=== PATIENT | female | born 1930 | race Caucasian/White ===

== ENCOUNTER 2016-10-14 10:39 | Inpatient (IN) | payer MEDICARE ==
[2016-10-14] VITALS (8 sets, daily range): BP systolic 128–160; BP diastolic 60–95; PULSE 100–125; RESP 14–23; O2SAT 92–97
[~2016-10-14] VITALS: Ht 177.8 cm; Wt 71.6 kg
[~2016-10-14 10:39] MED LIST: CAR120CD PO; COU25 PO; COU5 PO; DIVA125C PO; KEPP250T PO; LACT1TAB10 PO; MEMA5TAB2 PO; NAPR220T2 PO; PEP20 PO; PRAV80TA PO
--- NOTE | 2016-10-14 11:01 | ED.REPORT ---
HPI-Abd Pain F 40 and Over Date of Service Oct 14, 2016 ED Provider: Dr. Cedillo 85 y/o female wit a hx of dementia, A-fib (on Coumadin), CVA, left sided hemiparesis and frequent UTIs presents to the ED via EMS complaining of abdominal pain, onset 3 days ago. Associate sx include nausea and vomiting. The pt was seen at urgent care for constipation yesterday but does not associate her current pain with constipation. Her last BM was yesterday. Nursing Notes Stated Complaint: ABDOMINAL PAIN Chief Complaint: Female Abdominal Pain Nursing Notes Reviewed: Yes Allergies: Coded Allergies: hydromorphone (Verified Adverse Reaction, Unknown, NAUSEA, 10/14/16) Scheduled Diltiazem (Diltiazem) 60 Mg Tablet 60 MG PO Q8H Levetiracetam (Levetiracetam) 500 Mg Tablet 500 MG PO BID Memantine HCl (Memantine HCl) 10 Mg Tablet 10 MG PO BID Warfarin Sodium (Coumadin) 5 Mg Tablet 5 MG PO Mon, Wed, Thu General Time Seen by MD: 11:01 Chief Complaint Abdominal pain Hx Obtained From: Patient Arrived By: Ambulance Sudden in Onset?: Yes Onset Occurred: 3 days ago Symptom Duration: Since onset Location: : Diffuse Quality: Painful Radiation: : Does not radiate Severity: Current: Moderate Severity: Maximum: Moderate Recent Healthcare: No recent doctor visit Similar Sx Previous: No Past Medical History Past Medical History - dementia - A-fib (on Coumadin) - CVA - left sided hemiparesis - frequent UTIs - HTN Past Surgical History none reported Smoking History Unknown if Ever Smoker Ambulatory Status Independent Review of Systems GI: Reports: Abdominal pain, Constipation, Nausea, Vomiting Complete sys rev & neg: except as marked. Physical Exam Vital Signs Vital Signs (First) Date Time Temp Pulse Resp B/P Pulse Ox O2 Delivery O2 Flow Rate FiO2 10/14/16 10:47 36.4 116 23 160/64 94 Room Air Initial VS: Reviewed Head / Eyes: Atraumatic, Normocephalic Neck: Supple, Non-tender, Full range of motion Extremities: Vascular intact, Neuro intact, No swelling, No tenderness Skin: Warm, Dry, No cyanosis Neurologic: Alert, Oriented, Nonfocal General/Constitutional: Awake, Alert, Cooperative Respiratory / Chest: Atraumatic, Breath sounds NL, Breath sounds = bilat, No respiratory distress, No rales, No rhonchi, No wheezing Cardiovascular: Regular rhythm, Heart sounds NL, No gallop, No murmurs, No rubs Heart Rate / Rhythm: Positive: Tachycardia Abdomen: Atraumatic, Soft, No guarding, No rebound Tenderness/Guarding/Rebound: Positive: Tender LLQ... (Moderate) Back: Atraumatic, Full range of motion Interpretation & Diagnostics Lab Results Interpretation Result Diagram: 10/14/16 1150 10/14/16 1150 Test 10/14/16 11:50 10/14/16 12:00 White Blood Count 28.2th/mm3 (3.8-10.1) Red Blood Count 4.86mil/mm3 (3.90-5.20) Hemoglobin 15.4g/dL (12.0-15.6) Hematocrit 44.6% (35.0-46.0) Mean Corpuscular Volume 91.8fL (81-100) Mean Corpuscular Hemoglobin 31.7pg (27.0-35.0) Mean Corpuscular Hemoglobin Concent 34.5% (32.0-37.0) Red Cell Distribution Width 13.6% (12.3-15.4) Platelet Count 237bil/L (150-400) Neutrophils (%) (Auto) 90.2% (40-74) Lymphocytes (%) (Auto) 2.8% (14-46) Monocytes (%) (Auto) 6.4% (4-12) Eosinophils (%) (Auto) 0% (0-5) Basophils (%) (Auto) 0.1% (0-3) Prothrombin Time 48.2sec (8.1-12.5) Prothromb Time International Ratio 4.37ratio Sodium Level 147mEq/L (134-144) Potassium Level 4.7mEq/L (3.5-5.2) Chloride Level 107mEq/L (97-108) Carbon Dioxide Level 25mmol/L (18-29) Blood Urea Nitrogen 38mg/dL (8-27) Creatinine 1.44mg/dL (0.57-1.00) Estimat Glomerular Filtration Rate 49mL/min (>59) Glucose Level 167mg/dL (60-99) Calcium Level 9.5mg/dL (8.5-10.1) Magnesium Level 2.3mg/dL (1.6-2.6) Total Bilirubin 0.8mg/dL (0.0-1.2) Aspartate Amino Transf (AST/SGOT) 46U/L (0-50) Alanine Aminotransferase (ALT/SGPT) 50U/L (0-32) Alkaline Phosphatase 142U/L (25-165) Total Protein 7.7g/dL (6.4-8.4) Albumin 4.0g/dL (3.4-5.0) Lipase 20U/L (13-60) Lactic Acid Level 1.8mmol/L (0.4-2.0) Hold Cervantes Top Tube Received (Received) X-Ray Chest Interpretation Chest Xray Interpretation: IMPRESSION: Trace blunting of the left costophrenic angle suggestive of effusion. Smaller underlying airspace disease such as pneumonia and/or atelectasis cannot be excluded. Dictated by: Siomara Castro M.D. on 10/14/2016 at 13:16 Approved by: Siomara Castro M.D. on 10/14/2016 at 13:17 View: Portable, 1 view Interpretation / Wet Read by: Interpret - Radiologist CT Abd / Pelvis Interpretation IMPRESSION: 1. Enlarged gallbladder with moderate surrounding edema is concerning for acute inflammation. An ultrasound would be helpful for better characterization, particularly given motion artifact through this region. These findings are suspicious for acute cholecystitis. 2. Minimal fluid within the left lower quadrant and pelvis probably is reactive to the probable inflammatory process within the right upper quadrant. However, superimposed subtle diverticulitis cannot be completely excluded. 3. Moderate residual stool within the colon. There is no bowel obstruction. 4. Probable chronic interstitial changes at the lung bases with bronchiectasis. 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 5. Nonobstructing left renal calculus. Soft tissue prominence of the left renal collecting system and upper ureter is similar to the previous exam and probably exaggerated by adjacent vascular structures. A ureteral lesion is felt to be unlikely. Dictated by: Guicho Wallis M.D. on 10/14/2016 at 12:11 Approved by: Guicho Wallis M.D. on 10/14/2016 at 12:21 Study type: Abdominal CT no contrast Interpretation / Wet Read by: Interpret - Radiologist Re-Eval/Medical Decision Med Decision/Clinical Course Sepsis due to cholecystitis. Patient will be admitted. Additionally she has a warfarin induced coagulopathy which we treated with IV vitamin K. Source of Hx: Old records Re-Evaluation/Progress : Time of Eval: 01:28 Re-Evaluation/Progress Note: Rechecked pt. Discussed lab results, imaging results, diagnosis and plan to admit after an ultrasound. She understands and agrees with the plan. All questions answered. Consultation #1: Referral / Consult Name: Yeison Pagan MD Consulted With: Surgeon Call Returned at: 13:34 Tape Sewing Machine Operator: Will see patient, Agrees with eval, Agrees with plan, Accepts admit Note: Recommends Vitamin K and admit. Consultation #2: Referral / Consult Name: Andrei Reeder MD Tape Sewing Machine Operator: Accepts admit Counseled Regarding: Diagnosis, Lab results, Need for admission Discharge & Departure Primary Impression: Sepsis Sepsis type: sepsis due to unspecified organism Qualified Code: A41.9 - Sepsis, unspecified organism Additional Impression: Cholecystitis Disposition: ADMITTED TO HOSPITAL Discharge Condition All VS Reviewed: Yes Scribe Attestation Portions of this note were transcribed by Rachel Geiger. I,, personally performed the history, physical exam and medical decision-making;I reviewed and confirmed the accuracy of the information in the transcribed note. Signed by Vinay Maier. 10/14/16 13:37 Grant Cedillo DO Oct 14, 2016 11:01 Rachel Geiger Oct 14, 2016 11:40 Rachel Geiger Oct 14, 2016 11:40
[2016-10-14] MEDS ORDERED: 0.9% Sodium Chloride 1,000 ML IV ONE ×2 (11:39→13:25)
[2016-10-14] MEDS ORDERED: Ondansetron 2 mg/mL 2 mL Inj IVPUSH PRN ×2 (11:40→15:25)
[2016-10-14 12:07] LABS: BASOPHILS % (AUTO) 0.1 % (0-3); EOSINOPHILS % (AUTO) 0 % (0-5); MONOCYTES % (AUTO) 6.4 % (4-12); Mean Corpuscular Hemoglobin 31.7 pg (27.0-35.0); Mean Corpuscular Volume 91.8 fL (81-100); NEUTROPHILS % (AUTO) 90.2 % (40-74); Platelet Count 237 bil/L (150-400)
[2016-10-14 12:31] LABS: Magnesium 2.3 mg/dL (1.6-2.6)
[2016-10-14 13:14] LABS: INR 4.37 ratio
--- NOTE | 2016-10-14 13:18 | DRSVH ---
PROCEDURE: X-RAY CHEST ONE VIEW, PORTABLE ([id number]) INDICATIONS: leukocytosis TECHNIQUE: One view of the chest was acquired. COMPARISON: [facility], CR, XR CHEST 1VW, 10/13/2016, 16:00. FINDINGS: Surgical changes and devices: None. Lungs and pleura: There is trace blunting of the left costophrenic angle. Mediastinum: Mediastinal contours appear normal. Heart size is normal. Bones and chest wall: No suspicious bony lesions. Overlying soft tissues appear unremarkable. IMPRESSION: Trace blunting of the left costophrenic angle suggestive of effusion. Smaller underlying airspace disease such as pneumonia and/or atelectasis cannot be excluded. Dictated by: Siomara Castro M.D. on 10/14/2016 at 13:16 Approved by: Siomara Castro M.D. on 10/14/2016 at 13:17
--- NOTE | 2016-10-14 13:23 | DRSVH ---
PROCEDURE: CT ABDOMEN AND PELVIS WITHOUT CONTRAST ([id number]) INDICATIONS: Left lower quadrant abdominal pain. TECHNIQUE: After the administration of oral contrast, 5 mm thick sections acquired from the diaphragms to the sy mphysis. 5 mm coronal and sagittal reformats were performed. For radiation dose reduction, the foll owing was used: automated exposure control, adjustment of mA and/or kV according to patient size. COMPARISON: [facility] , CT, CHEST W/O CONTRAST, 08/29/2009, 12:45. FINDINGS: Image quality: Suboptimal related to motion artifact within the upper abdomen. ABDOMEN: Lung bases: Scarring/atelectasis is noted within the bilateral lung bases (left more than right). Mi ld inferior bronchiectasis is present. There are calcified pleural plaques versus granulomas noted b ilaterally. The heart is prominent in size. There is no pericardial effusion. Coronary artery athe rosclerotic changes appear to be present. Solid organs: The gallbladder is prominently enlarged and demonstrates apparent wall thickening with moderate surrounding edema. Evaluation of this region is difficult related to upper abdominal respir atory motion artifact. The liver is not well evaluated. The spleen adrenals, and kidneys appear to be within normal limits. However, there is a nonobstructing left renal calculus. Mild prominence of the left renal collecting system is present, which in retrospect appears similar to the previous exa mination and may be exaggerated by overlying vascular structures. The pancreas also appears to be wit hin normal limits. There is mild enlargement of the left adrenal gland, similar to the previous exam . Peritoneum and bowel: The stomach is not well evaluated on this study, particularly within the region of the antrum. The duodenum is probably within normal limits. The small bowel loops are not signif icantly dilated. Moderate residual stool is seen within the colon. There is no complete bowel obstr uction proposed operative changes of the proximal colon are incidentally noted. Minimal edema/fluid is noted within the left lower quadrant mesentery. Small amount of free fluid is seen within the rig ht upper quadrant near the gallbladder fossa. There is no loculated fluid collection or free air. Nodes and vessels: No retroperitoneal or mesenteric adenopathy by size criteria. Aorta and inferior vena cava are normal in size. There is aortic atherosclerosis. Bones: At least moderate degenerative changes of the lumbar spine are present. No acute fractures or dislocations are identified. The bone mineralization is diffusely decreased. PELVIS: Genitourinary: Bladder wall thickness is normal. The uterus and ovaries do not appear to be enlarge d. Miscellaneous: No inguinal hernias or adenopathy. A small amount of free fluid is seen within the p owen. There are no loculated fluid collections. Bones: No suspicious bony lesions. No vertebral body compression fractures. IMPRESSION: 1. Enlarged gallbladder with moderate surrounding edema is concerning for acute inflammation. An ul trasound would be helpful for better characterization, particularly given motion artifact through thi s region. These findings are suspicious for acute cholecystitis. 2. Minimal fluid within the left lower quadrant and pelvis probably is reactive to the probable infl ammatory process within the right upper quadrant. However, superimposed subtle diverticulitis cannot be completely excluded. 3. Moderate residual stool within the colon. There is no bowel obstruction. 4. Probable chronic interstitial changes at the lung bases with bronchiectasis. Calcified pleural p laques are suggestive of prior asbestos exposure. 5. Nonobstructing left renal calculus. Soft tissue prominence of the left renal collecting system a nd upper ureter is similar to the previous exam and probably exaggerated by adjacent vascular structu res. A ureteral lesion is felt to be unlikely. Dictated by: Guicho Wallis M.D. on 10/14/2016 at 12:11 Approved by: Guicho Wallis M.D. on 10/14/2016 at 12:21
[2016-10-14] MEDS ORDERED: Piperacillin-Tazo 3.375 Gm Inj 3.375 GM in Dextrose 5% Minibag Plus 50 ML IV ONE (13:25)
[2016-10-14] MEDS ORDERED: Phytonadione (Adult) 10 MG in Dextrose 5%-Pha MIX 50 ML IV ONE (13:40)
[2016-10-14] MEDS ORDERED: LEVE500T3 PO (14:59)
[2016-10-14] MEDS ORDERED: DILT60TA PO (14:59)
[2016-10-14] MEDS ORDERED: MEMA10TA20 PO (14:59)
[2016-10-14] MEDS ORDERED: WARF5TAB PO (15:00)
[2016-10-14] MEDS ORDERED: Alum-Mag Hydrox-Simeth 30 mL Suspension PO PRN (15:25)
[2016-10-14] MEDS ORDERED: Polyethylene Glycol (PEG) 17 Gm Powder PO PRN (15:25)
--- NOTE | 2016-10-14 16:34 | DRSVH ---
PROCEDURE: US ABDOMEN ([id number]) INDICATIONS: RUQ abdominal pain TECHNIQUE: Real-time scanning was performed of the abdominal and retroperitoneal organs, with image documentatio n. COMPARISON: None. FINDINGS: Liver: Liver is normal in size at 12.8 cm and homogeneous in echotexture. Gallbladder: Small stones and sludge are present in the gallbladder. The largest node is 1 cm. There is wall thickening of 3.8 cm. This thought to be a small amount of fluid around the gallbladder. Biliary ducts: Intrahepatic bile ducts are non-dilated. The extrahepatic biliary tree is obscured b y bowel gas. Pancreas: Body of the pancreas is considered normal. Head and tail are obscured by bowel gas. Spleen: Spleen is spleen is relatively small at 3.5 cm. It is otherwise normal in appearance. Kidneys: Kidneys are normal in size and echotexture. Right kidney measures 10.2 cm long; left kidne y is not sufficiently well seen to measure.. Right renal cortex is slightly thinned at 9 mm in thickn ess. No hydronephrosis or nephrolithiasis on the right.. No solid masses on the right.. Aorta: The abdominal aorta is obscured in its proximal third. The middle and distal thirds are normal in size. Iliacs: Proximal common iliac arteries are normal in caliber at less than 2.5 cm. the right is 11 a nd the left 9 mm. IVC: Intrahepatic inferior vena cava is patent. Miscellaneous: No free abdominal fluid. IMPRESSION: Changes are present consistent with an acute cholecystitis. Left kidney and not sufficiently well seen to evaluate. Head and tail of the pancreas obscured by bow el gas. Dictated by: Justin Porras M.D. on 10/14/2016 at 16:28 Approved by: Justin Porras M.D. on 10/14/2016 at 16:32
[2016-10-14] MEDS: 0.9% Sodium Chloride 1,000 ML IV SCH (17:15)
--- NOTE | 2016-10-14 18:17 | CONS ---
[address] [address] CONSULTATION REPORT PATIENT: NGA MCKEE : 1930 MR#: [id number] ADMIT: 10/14/2016 JOB ID: [id number] DATE OF SERVICE: 10/14/2016 CHIEF COMPLAINT IDENTIFICATION: Dr. Cedillo in emergency department has asked me to consult on this woman who is being admitted to the Medicine service regarding her gallbladder. HISTORY OF PRESENT ILLNESS: An 85-year-old woman who presents with abdominal pain x3 days. I am unable to obtain any of the history from the patient and only some of the history from her . It sounds as if she has had abdominal pain for the last three days with symptoms including nausea and vomiting. She was seen at an urgent care yesterday, comes to our emergency department where she was noted to be tachycardic, have an elevated white count, and CT scan demonstrated possible cholecystitis. I can obtain no information as to whether she has a history of jaundice, acholic stools, or tea-colored urine. She has a history recorded in the chart of a previous CVA with persistent left-sided deficits, history of atrial fibrillation, on chronic Coumadin therapy, hypertension, hyperlipidemia, history of a seizure disorder, as well as a history of a right partial colectomy in 2007. No reported allergies. MEDICATIONS: Per med reconciliation list, these include warfarin, diltiazem, levetiracetam, and memantine. SOCIAL HISTORY: She lives with her in some sort of assisted living situation. PHYSICAL EXAMINATION: Vital signs recorded in the chart. Her pulse is between 104 and 116. Blood pressure is within normal limits. O2 saturation on 2 L nasal cannula is 92%, down from 96% on room air. She is in bed with her eyes closed, arousable, and able to say yes to questions but she does not engage in a meaningful conversation nor does she answer my questions. She has not been medicated for several hours. Her skin is not jaundiced. Her sclerae are anicteric. She has an irregular regular heartbeat. Lungs are clear. Her abdomen is fairly benign, without significant tenderness in the right upper quadrant. There are no groin hernias. Formal neurologic exam is not performed. 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 LABORATORY DATA: Her white count is 28,000. Her hematocrit is 44, compared to mid 30s on a previous CBC. Her chemistries are normal except for a sodium of 147, a BUN of 38, and a creatinine of 1.44. LFTs are normal except for an ALT of 50. Lipase is 20. Urinalysis is still pending. Coags show that she has an INR of 4.37. IMAGING: She had abdominal pelvis CT that is suggestive of right upper quadrant inflammation and an abdominal ultrasound demonstrating gallstones and a thickened gallbladder wall, with findings consistent with cholecystitis. IMPRESSION/SUGGESTIONS: An 85-year-old woman probably with acute cholecystitis accounting for her abdominal pain and her leukocytosis. She is currently over-anticoagulated and dehydrated. My recommendations are as follows. 1. IV antibiotics. 2. Fluid resuscitation. 3. Complete medical evaluation including identifying her baseline function, which also includes whether she has an element of dementia as recorded in the chart and specifics of neurologic deficits. 4. Vitamin K. 5. Cardiology evaluation including echocardiogram, if there is any consideration of her going to the operating room. 6. I think it might be helpful to involve her primary care doctor regarding discussion as to how aggressive the treatment for her cholecystitis should be and whether there would be any limits on interventions, such as whether surgery would be either desired or in her best interest. Surgery will continue to follow her, and after all of this is done, the decision as to whether or not we should proceed with surgery will be made, and at that time, if her INR has not corrected on its own with vitamin K, she would require FFP. I will not be available until this coming Thursday, and I will have one of my surgical partners follow up tomorrow.
--- NOTE | 2016-10-14 18:29 | NUR ---
Admission Patient admitted to room 2006, arrived to unit via gurney accompanied by her . Patient minimally responsive but voices she is in severe abdonimal pain. Pt hypertensive and tachycardic, MD aware. SPO2 mid 90s on 2L NC. PRN morphine given for pain. left shortly after patient arrived to floor and patient not responding to questions so admission information completed by recalling information from previous visits.Call light with in reach.
--- NOTE | 2016-10-14 20:18 | PCM.HPMED ---
Subjective Date of Service Oct 14, 2016 Primary Provider: Admitting Physician: Primary Care Physician: Bandar Anderson MD Attending Physician: Chief Complaint: ABDOMINAL PAIN History of Present Illness: History obtained from , Dilshda. Ms. 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 Regained most function but has some underlying vascular dementia but has a very functional baseline and now ambulates with a walker. She also has seizure activity following stroke, sees Dr. Apodaca and on [facility]. She is regularly active with her . She reports 3 episodes of nausea and vomiting Thursday. Over the weekend things seemed to resolve until late Thursday evening when she began reporting severe abdominal pain to her . They visited her primary care physician yesterday for imaging, chest and abdomen who contacted them today and advised to visit the ED. Upon arrival the patient was mostly non-responsive. She would moan briefly, stated her name, open eyes inconstantly to commands, and grimaces to pain. In the ED Patient had abdominal US and abdomen CT which showed likely Acute Cholecystitis, surgery consulted and advised Vit K, fluid resuscitation, antibiotics and will re-evaluate tomorrow. Dr. Garcia is on service with surgery. Patient lives with her Dilshad, in [place]. Upon interview in the ED: Patient was very minimally responsive and a review of systems was not possible. Vitals: 36.4, 116, 23, 160/64, 94 % on RA. WBC 28.2 Neuts 90 %. Sodium 147, Cre 1.44, glucose 167, Lactic Acid 1.8. INR 4.37. Blood cx x2 pending. UA with cx pending. Patient received Zosyn and NS bolus x2 L and Vit K in the ED. Review of Systems: A comprehensive review of systems was conducted with the patient's and found to be negative except as above in the History of Present Illness. Allergies Coded Allergies: hydromorphone (Verified Adverse Reaction, Unknown, NAUSEA, 10/14/16) Home Medications Diltiazem-Expunged Drug, Do Not Renew! (Diltiazem CD-Expunged Drug, Do Not Renew !) 120 Mg Capsule 120 MG PO BID Divalproex Sod-Expunged Drug, Do Not Renew! (Divalproex Sod-Expunged Drug, Do Not Renew!) 125 Mg Cap 125 MG PO HS Famotidine-Expunged Drug, Do Not Renew! (Famotidine-Expunged Drug, Do Not Renew! ) 20 Mg Tablet 10 MG PO BID 20 MG LACTO ACID-Expunged Drug, Do Not Renew! (ACIDOPHILUS-Expunged Drug, Do Not Renew !) 1 Each Tablet 1 EACH PO DAILY Memantine Hcl-Expunged Drug, Do Not Renew! (Namenda-Expunged Drug, Do Not Renew! ) 5 Mg Tablet 5 MG PO BID Pravastatin -Expunged Drug, Do Not Renew! (Pravachol-Expunged Drug, Do Not Renew !) 80 Mg Tablet 80 MG PO DAILY Warfarin Inactive Drug Do Not Use (Coumadin Inactive Drug Do Not Use) 2.5 Mg Tablet 2.5 MG PO dThursFr Warfarin Inactive Drug Do Not Use (Coumadin Inactive Drug Do Not Use) 5 Mg Tablet 5 MG PO THURSDAY levETIRAcetam-Expunged Drug, Do Not Renew! (Keppra-Expunged Drug, Do Not Renew! ) 250 Mg Tablet 250 MG PO BID PMH - A-fib (on Coumadin) - CVA ~2006 with sequela of vascular dementia, left sided hemiparesis, seizures. - Frequent UTIs - HTN Surgical History Ascending colon resection 2nd to polyp. Family History Mother had colon cancer. Social History Hx Alcohol Use: No Hx Substance Use: No Hx Tobacco Use: No Smoking Status: Unknown if Ever Smoker Exam Vital Signs Vital Sign - Last Date Time Temp Pulse Resp B/P Pulse Ox O2 Delivery O2 Flow Rate FiO2 10/14/16 13:35 37.1 112 21 142/95 96 10/14/16 10:47 Room Air Exam General: Patient very minimally responsive. Grimaces to pain and has intermittent replies to her name with a moan. HEENT: Normocephalic, atraumatic. External ears without defect. Pupils equal, round, and reactive to light and accommodation. Anicteric sclerae, moist conjunctivae, and no lid lag. Oropharynx free of erythema and cobble stoning with moist mucosa. Neck: Supple with full range of motion. No jugular venous distension. No bruits. No lymphadenopathy or thyromegaly. Cardiovascular: Regular rate and rhythm with no murmurs, rubs, or gallops appreciated Pulmonary: Clear to auscultation bilaterally with no crackles, wheezes, or rhonchi. Normal respiratory effort with no use of accessory muscles. Abdomen: Bowel tones present. Soft, nontender, no guarding, no rebound, nondistended. No hepatosplenomegaly or masses appreciated. Extremities: No clubbing, cyanosis, edema, or lymphadenopathy appreciated. Skin: Normal temperature, turgor, and texture; no rash, ulcers, or subcutaneous nodules appreciated. Neurological: Cranial nerves grossly intact. Normal muscle strength, tone, and bulk. Reflexes, coordination, and sensory function within normal limits. No known gait impairment. Psychiatric: Patient very minimally responsive. Lab and Diagnostics Result Diagram: 10/14/16 1150 10/14/16 1150 X-Rays, CTs and MRIs US ABDOMEN IMPRESSION: Changes are present consistent with an acute cholecystitis. Left kidney and not sufficiently well seen to evaluate. Head and tail of the pancreas obscured by bowel gas. Approved by: Justin Porras M.D. on 10/14/2016 at 16:32 CT ABDOMEN AND PELVIS WITHOUT CONTRAST IMPRESSION: 1. Enlarged gallbladder with moderate surrounding edema is concerning for acute inflammation. An ultrasound would be helpful for better characterization , particularly given motion artifact through this region. These findings are suspicious for acute cholecystitis. 2. Minimal fluid within the left lower quadrant and pelvis probably is reactive to the probable inflammatory process within the right upper quadrant. However, superimposed subtle diverticulitis cannot be completely excluded. 3. Moderate residual stool within the colon. There is no bowel obstruction. 4. Probable chronic interstitial changes at the lung bases with bronchiectasis. 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 5. Nonobstructing left renal calculus. Soft tissue prominence of the left renal collecting system and upper ureter is similar to the previous exam and probably exaggerated by adjacent vascular structures. A ureteral lesion is felt to be unlikely. Approved by: Guicho Wallis M.D. on 10/14/2016 at 12:21 X-RAY CHEST ONE VIEW, PORTABLE IMPRESSION: Trace blunting of the left costophrenic angle suggestive of effusion. Smaller underlying airspace disease such as pneumonia and/or atelectasis cannot be excluded. Approved by: Siomara Castro M.D. on 10/14/2016 at 13:17 Assessment & Plan Ms. Deidra Kennedy is an 85 year with a history of Afib on Coumadin, prior hemorrhagic CVA here at [facility] being treated for Acute Cholecystitis and KAREEM and being evaluated for surgical intervention. Sepsis, present on admission. Active. - Pulse 116, WBC 23.2 (N% 90.2), Cre 1.44. - Likely 2nd to Acute Cholecystitis. - Blood Cx / UA and cx pending. - Lactic Acid wnl. - Procalcitonin pending. - Continue Zosyn IV. - Continue IV fluids @ 80ml/hr. Acute Cholecystitis, present on admission. Active. - Abdomen CT/US as above. - Continue IV fluids and Antibiotics as above. - Surgery following, Recommendations appreciated. - ECHO ordered for tomorrow. No previous record of ECHO. - IV Morphine 0.5 mg Q2H. Acute Kidney Injury, present on admission. Active. - Cre 1.44, baseline 0.88. - Likely 2nd to above. - Continue fluids per above. History of Hemorrhagic CVA 10 years ago, - Residual seizure activity. - Continue home Keppra. 250 MG PO BID - Continue home Memantine 5 MG PO BID - Continue home Divalproex Cap 125 MG PO HS Acute on Chronic Hypertension, present on admission. Active. - Continue home meds when appropriate. Chronic Atrial Fibrillation, present on admission. Active. - Holding home warfarin. - Continue Home Diltiazem when appropriate. 120 MG PO BID Acute Super therapeutic INR, present on admission. Active. - INR 4.37. - Vit K given. Hyperlipidemia, Chronic. - Continue home Pravastatin 80 mg Daily. GERD Continue home Famotidine 10 mg PO Dialy. Acetaminophen for mild pain when necessary. Bowel regimen Senna and MiraLAX scheduled and PRN. Zofran when necessary for nausea and vomiting. SubQ heparin held for now. SCDs in place. High-risk medications: IV Morphine Social: Patient lives at home with , Dilshad, in [place]. Patient Status: Patient is admitted under inpatient status with expected length of stay greater than 2 midnights due to Acute cholecystitis and risk of adverse event, and complexity of treatment plan. Will be discharged when medically stable. Pain Evaluation: Adequate Pain Control Resuscitation Status: CPR: Attempt Resuscitation Attending Statement The patient was seen and examined together with Dr. Blankenship on 10/14/2016 and I agree with the history, exam and plan as outlined in the note above. . REZA BLANKENSHIP DO Oct 14, 2016 15:29 Andrei Reeder MD Oct 17, 2016 07:59
[2016-10-14 20:38] LABS: APPEARANCE,URINE TURBID (CLEAR,HAZY); COLOR,URINE YELLOW (YELLOW); OCCULT BLOOD,URINE MODERATE (NEGATIVE); PH,URINE 5.5 (5.0-8.0); UROBILINOGEN,URINE NORMAL (NORMAL)
[2016-10-14] MEDS: Piperacillin-Tazo 3.375 Gm Inj 3.375 GM in Dextrose 5% Minibag Plus 50 ML IV SCH (22:47)
[2016-10-15] VITALS (15 sets, daily range): BP systolic 104–148; BP diastolic 42–81; PULSE 102–124; RESP 8–20; O2SAT 91–98
--- NOTE | 2016-10-15 01:04 | NUR ---
Pain Continues to be minimally responsive. Able to tell me when she was having increased abdominal pain. Given morphine and states this was effective. When she is repositioned, turns herself back to her left side, stating it's more comfortable for her.
[2016-10-15 04:28] LABS: BASOPHILS % (AUTO) 0.1 % (0-3); EOSINOPHILS % (AUTO) 0.1 % (0-5); MONOCYTES % (AUTO) 5.1 % (4-12); Mean Corpuscular Hemoglobin 31.1 pg (27.0-35.0); Mean Corpuscular Volume 95.2 fL (81-100); NEUTROPHILS % (AUTO) 89.8 % (40-74); Platelet Count 188 bil/L (150-400)
[2016-10-15 04:52] LABS: INR 1.37 ratio
[2016-10-15] MEDS: Piperacillin-Tazo 3.375 Gm Inj 3.375 GM in Dextrose 5% Minibag Plus 50 ML IV SCH ×2 (04:56→14:26)
[2016-10-15] MEDS: 0.9% Sodium Chloride 1,000 ML IV SCH ×2 (04:56→14:26)
[2016-10-15] MEDS ORDERED: levETIRAcetam 500 mg Tablet PO SCH (09:25)
[2016-10-15] MEDS: Heparin 5,000 Unit/mL Inj SUBQ SCH ×2 (09:25→16:30)
[2016-10-15 11:10] LABS: INR 1.27 ratio
[2016-10-15] MEDS: Diltiazem HCl 125 MG in 0.9% Sodium Chloride 100 ML, Pharmacy To Mix 1 EA IV SCH (11:20)
--- NOTE | 2016-10-15 14:13 | DRSVH ---
[facility] [address] [place] [address] Echocardiogram Report Name: NGA MCKEE MStudy Troy e: 10/15/2016 Height: 64 in Hospital Exam Location: [facility] Weight: 135 lb Gender: Female BSA: 1.7 m2 : 1930 Age: 85 yrs BP: 142/76 mmHg Reason For Study: Acute Cholecystitis Ordering Physician: Performed By: Desiree Lau Referring Physician: REZA BLANKENSHIP Interpretation Summary The left ventricular cavity is small. Proximal septal thickening is noted. Left ventricular systolic function is normal without focal wall motion abnormalities. The ejection fraction is estimated to be 65-70%. The right ventricle is normal in size and function. The left atrium is mildly dilated. The right atrium is normal in size. There is no significant valvular heart disease. The aortic root is normal size. The heart rate ranged between 93-125 bpm during the study in the setting of atrial fibrillation. Procedure: A two-dimensional transthoracic echocardiogram with color flow and Doppler was performed. The study quality was technically adequate. The subcostal views were difficult to obtain and are suboptimal in quality. Comparison is made with the echocardiogram of 12/20/2009. The heart rate ranged between 93-125 bpm during the study. Left Ventricle: The left ventricular cavity is small. Left ventricular wall thickness is moderately increased. Proximal septal thickening is noted. Left ventricular systolic function is normal without focal wall motion abnormalities. The ejection fraction is estimated to be 65-70%. Diastolic function could not be accurately assessed due to tachycardia. Right Ventricle: The right ventricle is normal in size and function. Atria: The left atrium is mildly dilated. The right atrium is normal in size. The interatrial septum is intact with no evidence for an atrial septal defect. Mitral Valve: The mitral valve leaflets appear mildly thickened, but open well. There is mild mitral annular calcification. There is trace mitral regurgitation. Aortic Valve: The aortic valve is trileaflet. The aortic valve opens well. There is trace aortic regurgitation. Tricuspid Valve: The tricuspid valve leaflets are thin and pliable. There is mild tricuspid regurgitation. Pulmonic Valve: The pulmonic valve is not well seen, but is grossly normal. There is mild pulmonic regurgitation. There is no significant valvular heart disease. Great Vessels: The aortic root is normal size. The ascending aorta is normal in size. The IVC is of normal diameter and collapses greater than 50% with a sniff. This suggests a low right atrial pressure of 3 mm Hg. Pericardium/ Pleura There is a trivial pericardial effusion noted. There is a small left-sided pleural effusion. MMode/2D Measurements & Calculations LVIDd: 3.3 cm RA long axis LVOT diam LVIDs: 2.1 cm LA A2 area: 19.5 cm FS: 36.8 % LA A4 area: 21.5 cm RA area Ao root diam IVSd: 1.6 cm LA length (vol): 5.5 cm LVPWd: 1.3 cm LA vol: 64.8 ml : 13.1 cm asc Aorta LA vol index RA vol: 26.1 mlDiam: 3.4 cm RA : 39.2 ml/m2 : 15.8 mm2 LV farmer. diameter/BSA LV sys. diameter/BSA (cm/m^2): 2.0 (cm/m^2): 1.3 Doppler Measurements & Calculations Ao V2 max: 105.6 cm/sec TR max burke Ao V2 mean LV V1 max PG Ao max P.5 mmHg : 274.1 cm/sec : 79.7 cm/sec Ao mean P.7 mmHg TR max PG Ao V2 VTI LV V1 VTI LVOT Max Burke : 30.6 mmHg : 12.9 cm : 82.2 cm/sec RICHARDSON(V,D): 2.2 cm2 RICHARDSON(I,D): 2.1 cm sev ratio: 0.73 RICHARDSON indexed to BSA (cm^2/m^2): 1.3 Reading Physician:RADHA
--- NOTE | 2016-10-15 14:30 | PCM.PNMED ---
Subjective Date of Service Oct 15, 2016 Subjective Overnight the patient continued to be in various amounts of pain. This morning, Mrs. Kennedy is still struggling with pain and feeling unwell. She reports abdominal pain but no fevers/chills, nausea/vomiting, shortness of breath, chest pain, palpitations, or diarrhea. Exam Vital Signs Vital Sign - Last Date Time Temp Pulse Resp B/P Pulse Ox O2 Delivery O2 Flow Rate FiO2 10/15/16 12:53 Supplement Oxygen 10/15/16 12:22 36.5 117 143/81 92 3.00 10/15/16 08:05 16 Intake and Output 10/14/16 10/14/16 10/15/16 Cumulative From/Thru 15:00 23:00 07:00 10/14/16 10:47 - 10/15/16 06:16 Intake Total 1000 ml 1000 ml 887 ml 2887 ml Balance 1000 ml 1000 ml 887 ml 2887 ml Intake IV Total 1000 ml 1000 ml 887 ml 2887 ml # Voids 3 3 Exam General: Patient very minimally responsive but does respond to questioning HEENT: NCAT. External ears without defect. PERRLA. Oropharynx free of erythema and cobble stoning with moist mucosa. Neck: Supple. No jugular venous distension, thyromegaly. Cardiovascular: Irregular rhythm, tachycardic. No discernable murmur/rub/gallop Pulmonary: CTa bilaterally with poor inspiratory effort due to pain. Abdomen: Soft, tender in the RUQ and slight epigastric area. Nondistended, normoactive bowel tones. Extremities: No clubbing, cyanosis, edema, or lymphadenopathy appreciated. Skin: Normal temperature, turgor, and texture; no rash, ulcers, or subcutaneous nodules appreciated. Neurological: CN 2-12 intact. A&Ox3. No focal deficits, muscle strength varied throughout exam due to abdominal pain Psychiatric: Patient very minimally responsive. IVs and Medications Medications Reviewed: Medications were reviewed in detail Lab and Diagnostics Result Diagram: 10/15/1641910/15/16419 X-Rays, CTs and MRIs US ABDOMEN IMPRESSION: Changes are present consistent with an acute cholecystitis. Left kidney and not sufficiently well seen to evaluate. Head and tail of the pancreas obscured by bowel gas. Approved by: Justin Porras M.D. on 10/14/2016 at 16:32 CT ABDOMEN AND PELVIS WITHOUT CONTRAST IMPRESSION: 1. Enlarged gallbladder with moderate surrounding edema is concerning for acute inflammation. An ultrasound would be helpful for better characterization , particularly given motion artifact through this region. These findings are suspicious for acute cholecystitis. 2. Minimal fluid within the left lower quadrant and pelvis probably is reactive to the probable inflammatory process within the right upper quadrant. However, superimposed subtle diverticulitis cannot be completely excluded. 3. Moderate residual stool within the colon. There is no bowel obstruction. 4. Probable chronic interstitial changes at the lung bases with bronchiectasis. 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 5. Nonobstructing left renal calculus. Soft tissue prominence of the left renal collecting system and upper ureter is similar to the previous exam and probably exaggerated by adjacent vascular structures. A ureteral lesion is felt to be unlikely. Approved by: Guicho Wallis M.D. on 10/14/2016 at 12:21 X-RAY CHEST ONE VIEW, PORTABLE IMPRESSION: Trace blunting of the left costophrenic angle suggestive of effusion. Smaller underlying airspace disease such as pneumonia and/or atelectasis cannot be excluded. Approved by: Siomara Castro M.D. on 10/14/2016 at 13:17 Cardiac Echo Impressions Echo 10/15/16 Interpretation Summary The left ventricular cavity is small. Proximal septal thickening is noted. Left ventricular systolic function is normal without focal wall motion abnormalities. The ejection fraction is estimated to be 65-70%. The right ventricle is normal in size and function. The left atrium is mildly dilated. The right atrium is normal in size. There is no significant valvular heart disease. The aortic root is normal size. The heart rate ranged between 93-125 bpm during the study in the setting of atrial fibrillation. Assessment & Plan Ms. Deidra Kennedy is an 85 year old female with a history of Afib on Coumadin and prior hemorrhagic CVA who presented to the Emergency Department with abdominal pain. She is currently being treated for KAREEM and acute cholecystitis with surgical evaluation. Septic Encephalopathy, not present on admission. Ongoing. - Patient normally alert, active, oriented at baseline per family - Patient has been minimally interactive during her admission - PO meds changed to IV counterparts - NS at 80ml/hr; consider increasing pending echo result Sepsis, present on admission. Improving. - Pulse 107, WBC 23, Creatinine 1.08 - Likely secondary to Acute Cholecystitis. - Blood cultures negative x24h, urine unremarkable - Lactic Acid continues to trend normally - Procalcitonin slightly elevated at 0.71 - Continue Zosyn IV. - Consider increasing fluids from 80ml/hr depending on echo result Acute Cholecystitis, present on admission. Active. - Abdomen CT/US as above. - IVF and Antibiotics as above. - Echo as above - IV Morphine increased to 2 mg Q2H for pain relief - Dr. Garcia will perform cholescystectomy around 1300, appreciate her expertise Acute Kidney Injury, present on admission. Improving. - Cre 1.08, baseline 0.88. - Continue fluids as above - Avoid nephrotoxic insults History of Hemorrhagic CVA 10 years ago, stable. - Residual seizure activity. - Patient unable to take PO medications at this time - IV Keppra ordered Acute on Chronic Hypertension, present on admission. Active. - Consider restarting home meds after surgery if appropriate Chronic Atrial Fibrillation, present on admission. Active. - Holding home warfarin. - Diltiazem drip ordered as she in unable to take PO meds at this time Acute Super therapeutic INR, present on admission. Active. - INR 1.27 prior to surgery - Hold warfarin until cleared by surgery; consider subq heparin Hyperlipidemia, Chronic. - Continue home Pravastatin 80 mg Daily. GERD Continue home Famotidine 10 mg PO Daily. Acetaminophen for mild pain when necessary. Bowel regimen Senna and MiraLAX scheduled when needed. Zofran when necessary for nausea and vomiting. SubQ heparin held for now. SCDs in place. High-risk medications: IV Morphine Patient Status: Patient will likely be admitted for the next 2-3 days depending on response to surgery, improvement in symptoms, and overall medical stability. VTE Mechanical Devices: Intermittant Pneumatic CD Resuscitation Status: CPR: Attempt Resuscitation Attending Statement The patient was seen and examined together with Dr. Gutierrez on 10/15/2016 and I agree with the history, exam and plan as outlined in the note above. . Carlos Gutierrez DO Oct 15, 2016 14:30 Andrei Reeder MD Oct 17, 2016 08:01
--- NOTE | 2016-10-15 16:01 | NUR ---
Social Work Note: Multidisciplinary Rounds Pt discussed in AM rounds today, per MD pt is not medically ready for discharge. Per MD, pt is independent with a walker at baseline and is now minimally responsive. SW to follow up with pt and pt regarding baseline information and initial Assessment. SW to continue to follow. JOSE Chaudhari
[2016-10-15] MEDS ORDERED: Lactated Ringer's 1,000 ML IV ONE (18:00)
--- NOTE | 2016-10-15 18:05 | NUR ---
pain/neuro/surgery/heparin pt appears to be in pain intermitently throughout the day. Pt is able to state she has pain and is agreeable to pain medication. Morphine doseage increased twice today to try and control pain. Pt continues to be encephalopathic. Alert to self and recognizes . short 2-3 words statements. Plan was for laproscopic cholecystectomy surgery at 1400 however an emergency surgery postponed her case. consented for surgery from Dr Garcia, also spoke to anesthesiology. Pt went to OR at 1807. SQ heparin held all day as pt was waiting for surgery. is concerned about this given her A-fib. Pt is on diltiazem gtt for a-fib, goal rate less than 100.
--- NOTE | 2016-10-15 18:12 | PCM.HPANE ---
Patient Data Date of Service: Oct 15, 2016 Surgeon Admitting Provider:Andrei Reeder MD Attending Provider:Andrei Reeder MD Primary Care Physician:Bandar Anderson MD Other Provider: Reason for Visit Sepsis, Cholecystitis Ht/WT & BMI Weight (Kilograms): 61.100 Body Mass Index Allergies Coded Allergies: hydromorphone (Verified Adverse Reaction, Unknown, NAUSEA, 10/14/16) Past Anesthesia History Anesthesia History: Denies:: Anesthesia Reactions, Malignant Hyperthermia Diabetes History Hx Diabetes?: No MRSA MRSA: No Medications Blood Thinner: Coumadin Hypertension Medication: No Home Meds Incl Beta Mateusz: No Reported Medications Warfarin Sodium (Coumadin)5 Mg Tablet5 Mg PO Thu, Thu, Thu 30 Days Ref 0 10/14/16 Memantine HCl 10 Mg [id number] Mg PO BID #180 10/14/16 Levetiracetam 500 Mg [id number] Mg PO BID #180 10/14/16 Diltiazem 60 Mg Fxzjgg74 Mg PO Q8H #270 10/14/16 Discontinued Reported Medications Warfarin Inactive Drug Do Not Use (Coumadin Inactive Drug Do Not Use)5 Mg Tablet5 Mg PO Thu, Thu, Thu11/20/11 Warfarin Inactive Drug Do Not Use (Coumadin Inactive Drug Do Not Use)2.5 Mg Tablet2.5 Mg PO TuesWedThursFrSatSun 11/20/11 LACTO ACID-Expunged Drug, Do Not Renew! (ACIDOPHILUS-Expunged Drug, Do Not Renew !)1 Each Tablet1 Each PO DAILY 11/20/11 Famotidine-Expunged Drug, Do Not Renew! 20 Mg Chirlt39 Mg PO BID 20 MG 11/20/11 Memantine Hcl-Expunged Drug, Do Not Renew! (Namenda-Expunged Drug, Do Not Renew! )5 Mg Tablet5 Mg PO BID 11/20/11 Diltiazem-Expunged Drug, Do Not Renew! (Diltiazem CD-Expunged Drug, Do Not Renew !)120 Mg Iqfybyz217 Mg PO BID 11/20/11 levETIRAcetam-Expunged Drug, Do Not Renew! (Keppra-Expunged Drug, Do Not Renew!) 250 Mg Ecwbbo199 Mg PO BID 11/20/11 Divalproex Sod-Expunged Drug, Do Not Renew! 125 Mg Agw611 Mg PO HS 11/20/11 Naproxen Sodium-Expunged Drug, Do Not Renew! 220 Mg Yffctg935 Mg PO Q6 PRN 11/20/11 Pravastatin -Expunged Drug, Do Not Renew! (Pravachol-Expunged Drug, Do Not Renew !)80 Mg Nbdpmh64 Mg PO DAILY 11/20/11 History History of ENT Problems?: Yes HEENT History: Positive for:: Dysphagia Denies:: Cataracts Sinus Problem Denture Type: None Teeth Condition: Missing Teeth Hx of Heart Problems?: Yes Cardiovascular History: Positive for:: Hypertension Irregular Heartbeat (A.fib, on coumadin) Denies:: Cardiac Surgery Chest Pain Congestive Heart Failure Edema Pacemaker Thrombophlebitis Other History/Comments on diltiazem gtt Hx of Respiratory Problem?: No Respiratory History: Denies:: Asthma Hx Neurologic Problems?: Yes Neurological History: Positive for:: CVA (2007, hemiparesis; dementia) Dizziness Seizures Denies:: Alzheimer's Disease Dementia Headaches Parkinson's Disease Hx of GI Problems?: No Hx of Problems?: No Female Hx: Denies:: Currently Endometriosis Pelvic Inflammatory Problems with Breasts? Hx Musculoskeletal Problems?: No Hx of Psycho/Social Problems?: No Hx Surgeries?: Yes Hx Any Other Health Problems?: No Other History: Positive for:: Hospitalization Denies:: Cancer History Blood Transfusions: Denies:: Blood Transfusions Hx Diabetes: No Hx Alcohol Use: NoHx Substance Use: No Smoking Status: Unknown if Ever Smoker Have You Smoked inLast 12 mo: No Stop/Bang ANAND Risk Assessment: Low Risk, <3 Yes Risk Assessment Category Category 1A: Patient has history of documented sleep apnea, and HAS NOT received any narcotic, sedative or anesthesia administration during this stay. Category 1B: Patient has history of documented sleep apnea, and HAS received any narcotic , sedative or anesthesia administration during this stay Category 2: Patient has SUSPECTED Obstructive Sleep Apnea, and HAS received any narcotic , sedative or anesthesia administration during this stay. Category 3: Patient has SUSPECTED Obstructive Sleep Apnea and HAS NOT received narcotic, sedative or anesthesia administration during this stay. Category 4: Outpatient in Procedural Areas with known sleep apnea or who screen positive for High Risk via the STOP/BANG questionnaire. Exam Exam Vital Signs Vital Signs Date Time Temp Pulse Resp B/P Pulse Ox O2 Delivery O2 Flow Rate FiO2 7/19/17 17:44 36.4 109 16 112/60 93 Nasal Cannula 3.00 10/15/16 12:53 Supplement Oxygen 10/15/16 12:22 36.5 117 143/81 92 Nasal Cannula 3.00 10/15/16 10:52 116 General Appearance: Moderate Distress, Other (Unresponsive, uncooperative. states she will arouse with pain. ) HEENT/AIRWAY: Other (unable to cooperate with exam; appears favorable. ) Lungs: Clear to Auscultation, Normal Air Movement Heart: No Murmurs/Rubs/Gallops, Other (a-fib with rvr; on diltiazem gtt) Meds/Labs/Diagnostics Admission Meds Current Medications Piperacillin Sod/ Tazobactam Sod 3.375 gm/Dextrose/ Water 50 ml @ 12.5 mls/hr Q8H IV Last administered on 10/15/16 14:26; Start 10/14/16 at 21:30 Diltiazem HCl 125 mg/Sodium Chloride/ Miscellaneous 125 ml @ 5 mls/hr Q24H IV Last administered on 10/15/16 11:20; Start 10/15/16 at 10:20 Levetriacetam/ Dextrose/Water (Keppra Inj/D5W) 105 ml @ 420 mls/hr BID IV Last administered on 10/15/16 11:22; Start 10/15/16 at 10:20 Labs Test 10/14/16 11:50 10/14/16 16:22 10/15/16 04:20 10/15/16 10:15 Magnesium Level 2.3mg/dL (1.6-2.6) Lipase 20U/L (13-60) Urine Color Yellow (YELLOW) Urine Appearance Turbid (CLEAR,HAZY) Urine pH 5.5 (5.0-8.0) Urine Specific [place] 1.030 (1.003-1.035) Urine Protein 100mg/dL (NEG,TRACE) Urine Glucose (UA) Negativemg/dL (NEGATIVE) Urine Ketones Negativemg/dL (NEGATIVE) Urine Occult Blood Moderate (NEGATIVE) Urine Nitrite Negative (NEGATIVE) Urine Bilirubin Negative (NEGATIVE) Urine Urobilinogen Normalmg/dL (NORMAL) Urine Leukocyte Esterase Negative (NEGATIVE) Urine RBC 0-2/hpf (0-2) Urine WBC 0-5/hpf (0-5) Urine Epithelial Cells None/hpf (NONE-MOD) Urine Crystals Amorphous urates (NONE Urine Bacteria Few/hpf (NONE-FEW) Urine Hyaline Casts None/lpf (NONE) Urine Granular Casts None seen (NONE SEEN) Urine Waxy Casts None seen (NONE SEEN) Urine Red Blood Cell Casts None seen (NONE SEEN) Urine White Blood Cell Casts None seen (NONE SEEN) Urine Mucus None seen (None Seen) Urine Trichomonas None seen (NONE SEEN) Urine Yeast None (NONE SEEN) Urinalysis Comment None Urine Culture Reflexed Not indicated White Blood Count 23.1th/mm3 (3.8-10.1) Red Blood Count 4.15mil/mm3 (3.90-5.20) Hemoglobin 12.9g/dL (12.0-15.6) Hematocrit 39.5% (35.0-46.0) Mean Corpuscular Volume 95.2fL (81-100) Mean Corpuscular Hemoglobin 31.1pg (27.0-35.0) Mean Corpuscular Hemoglobin Concent 32.7% (32.0-37.0) Red Cell Distribution Width 13.7% (12.3-15.4) Platelet Count 188bil/L (150-400) Neutrophils (%) (Auto) 89.8% (40-74) Lymphocytes (%) (Auto) 4.5% (14-46) Monocytes (%) (Auto) 5.1% (4-12) Eosinophils (%) (Auto) 0.1% (0-5) Basophils (%) (Auto) 0.1% (0-3) Sodium Level 149mEq/L (134-144) Potassium Level 4.2mEq/L (3.5-5.2) Chloride Level 116mEq/L (97-108) Carbon Dioxide Level 20mmol/L (18-29) Blood Urea Nitrogen 36mg/dL (8-27) Creatinine 1.08mg/dL (0.57-1.00) Estimat Glomerular Filtration Rate 69mL/min (>59) Glucose Level 98mg/dL (60-99) Lactic Acid Level 0.8mmol/L (0.4-2.0) Calcium Level 8.1mg/dL (8.5-10.1) Total Bilirubin 1.1mg/dL (0.0-1.2) Aspartate Amino Transf (AST/SGOT) 73U/L (0-50) Alanine Aminotransferase (ALT/SGPT) 76U/L (0-32) Alkaline Phosphatase 135U/L (25-165) C-Reactive Protein 28.8mg/dL (0.0-0.5) Total Protein 5.1g/dL (6.4-8.4) Albumin 2.9g/dL (3.4-5.0) Procalcitonin 0.71ng/mL (0.00-0.08) Hold Cervantes Top Tube Received (Received) Test 10/15/16 10:30 Prothrombin Time 13.7sec (8.1-12.5) Prothromb Time International Ratio 1.27ratio Plan Impression Patient chart reviewed, patient interviewed and anesthestic plan with risks, benefits, and alternatives discussed, and informed consent obtained. NPO per Anesth. Guidelines: Yes ASA Physical Status: ASA3 Severe Disease Anesthetic Plan: GA Bene/Risks/Altern/Consents: Yes HP Complete Prior to Induction: Yes Other Patient in a-fib with RVR; had echo today which showed good cardiac function. Discussed with that patient may be at increased risk of cardiovascular or neurological complications, but that she does need to have her gall bladder out. Raz Bush MD Oct 15, 2016 18:12
[2016-10-15] MEDS ORDERED: Bupivacaine-MPF 0.25%/EPI 30 mL Inj INFILTRATE ONE (18:41)
[2016-10-15] MEDS ORDERED: Lactated Ringer's 1,000 ML IV SCH (18:56)
[2016-10-15] MEDS ORDERED: Lactated Ringer's 500 ML IV PRN (18:56)
[2016-10-15] MEDS ORDERED: Phenylephrine 10,000 mCg/mL Inj IVPUSH PRN (19:00)
[2016-10-15] MEDS ORDERED: MetoCLOpramide 5 mg/mL 2 mL Inj IVPUSH PRN (19:00)
[2016-10-15] MEDS ORDERED: Ondansetron 2 mg/mL 2 mL Inj IVPUSH PRN (19:00)
[2016-10-15] MEDS ORDERED: EPHEDrine Sulfate 50 mg/mL Inj IVPUSH PRN (19:00)
[2016-10-15] MEDS ORDERED: Dexamethasone 4 mg/mL Inj IVPUSH PRN (19:00)
[2016-10-15] MEDS ORDERED: fentaNYL-PF 50 mCg/mL 2 mL Inj IVPUSH PRN (19:00)
--- NOTE | 2016-10-15 20:57 | PCM.PNSURG ---
Subjective Visit Information: Reason for Visit Sepsis, Cholecystitis Surgery/Surgery Date Post-Op Day # Date of Admission: Oct 14, 2016 at 15:52 Hospital Day # Subjective: Pt examined early this morning. Abdominal discomfort. She is oriented to person and the hospital but not to the year and she says she lives in the hospital. Severe cholecystitis on imaging. INR <1.5 this am after Vitamin K yesterday HR in 110s-120s, Afib. Objective Vital Sign- Last 8 Hours Date Time Temp Pulse Resp B/P Pulse Ox O2 Delivery O2 Flow Rate FiO2 10/15/16 18:26 109 10/15/16 18:00 Supplement Oxygen 10/15/16 18:00 109 10/15/16 17:44 36.4 109 16 112/60 93 Nasal Cannula 3.00 Intake and Output- Last 8 Hour 10/15/16 Cumulative From/Thru 07:00 10/14/16 10:47 - 10/15/16 06:16 Intake Total 887 ml 2887 ml Balance 887 ml 2887 ml Intake IV Total 887 ml 2887 ml # Voids 3 3 General: Alert, Cooperative, Mild Distress Abdomen: Soft, Appropriately tender, Non-distended Result Diagram: 10/15/16 0420 10/15/16 0420 Assessment & Plan Impression 85yof with cholecystitis Problems: Plan -EKG, echocardiogram. If no cardiac contraindications, proceed with laparoscopic cholecystectomy today. -She and her were consented extensively on the possibility of conversion to open, injury to surrounding structures, cardiopulmonary complications, risk of repeat stroke, infection/bleeding. They both elect to proceed. -I considered cholecystostomy, however, as she has some dementia there is the possibility of inadvertent discontinuation of the tube by the patient which can create the need for additional procedures, as well as the inconvenience of care of the tube. Additionally, I do not see any major contraindications to an anesthetic in her past medical history. Resuscitation Status: CPR: Attempt Resuscitation Bell Garcia MD Oct 15, 2016 20:57
--- NOTE | 2016-10-15 21:03 | PCM.SURGOP ---
Surgical Operative Report Date of Service: Oct 15, 2016 Pre Operative Diagnosis Cholecystitis Post Operative Diagnosis Acute cholecystitis Procedure: Laparoscopic cholecystectomy with cholangiogram, with interpretation Surgeon and Gear Finisher: Surgeon: Bell Garcia M.D. Assistants: Pete Lopez MD, R3; Prudence Pittman, MS3 Indication for Procedure This is an 85-year-old woman with dementia who presented with 3 days of abdominal pain associated with nausea and vomiting to the emergency department. A CT scan was obtained, as well as ultrasound, both revealing cholecystitis. She did not have an elevated bilirubin. Her INR was greater than 4 due to long- term Coumadin use. Coumadin was discontinued and she received vitamin K. Her INR declined to 1.4. Echocardiogram was obtained due to her history of atrial fibrillation associated with tachycardia, and there is no sign of abnormalities that would contraindicate a general anesthetic. Therefore, the decision was made to proceed with laparoscopic cholecystectomy. Findings: 1. Very severe inflammation of the gallbladder requiring somewhat prolonged dissection. 2. Normal intraoperative cholangiogram with a long cystic duct, no filling defects, and adequate visualization of the right and left hepatic ducts, common hepatic duct, common bile duct, with good filling of the duodenum. Procedure Details The patient was brought to the operating room and placed in supine position. General endotracheal anesthesia was smoothly induced. Antibiotics were infused. A warming blanket and SCDs were placed. A foot board was placed. The operative field was prepped and draped in sterile fashion. A pause was performed to confirm the correct patient, procedure, site, and side. A transverse 10 mm incision was made just below the umbilicus. The abdomen was entered under direct vision using a Carlotta port. Three additional 5 mm ports were placed in the epigastrium and right upper quadrant. The gallbladder was identified and, due to severe distention, a needle was inserted to decompress it. It was then lifted cephalad. There were very severe adhesions due to cholecystitis, and substantial pericholecystic edema. The duodenum was gently dissected off of the gallbladder. Dissection then proceeded to identify the cystic duct, cystic artery, and to expose the lower one-third of the cystic plate. Once there were two and only two structures entering the gallbladder, a clip was placed on the gallbladder side of the cystic duct. A ductotomy was made and a cholangiocatheter was inserted. A cholangiogram was performed and the cystic duct was long and patent with normal filling of the common hepatic duct, common bile duct, and right and left hepatic ducts, as noted above. The cholangiocatheter was then removed, two clips were placed on the cystic duct and it was divided. The cystic artery was clipped on both the gallbladder side and the patient's side and divided. The gallbladder was then removed from its bed on the liver with electrocautery. Prior to completely removing the gallbladder, a final look was taken at the stump of the cystic artery and cystic duct, and there was no bleeding or bile leak. There was a small amount of bleeding from the liver bed, which was controlled with tamponade. The gallbladder was then fully removed from the liver and placed in an EndoCatch bag and removed. The three 5 mm ports were removed under direct vision, the 10 mm mid abdominal port was removed, and a drzxet-fe-maiew 0 PDS was used to close the fascia. There was no fascial defect at the end of the case. 0.5% Marcaine with epinephrine was infused at all port sites for postoperative analgesia. The skin was closed with subcuticular 4-0 Monocryl. Sterile dressings were placed. Sponge, instrument, and needle counts were correct at the end of the procedure. The patient was awakened from general anesthesia and taken to the postoperative care unit in good condition. A modifier 22 is requested as, due to the severity of the disease process, operation took more than twice the usual amount time to complete. Complications There were no periprocedural complications identified. Surgical Specimen Removed: Yes Specimen sent to Pathology: Yes Surgical Specimen description: Gallbladder Anesthetic Plan: GA Grafts, Implants: None Output, Estimated Blood Loss: 30 (ml) Blood Administration during adams: No Bell Garcia MD Oct 15, 2016 21:03
--- NOTE | 2016-10-15 21:05 | DRSVH ---
PROCEDURE: X-RAY OPERATIVE CHOLANGIOGRAM ([id number]) INDICATIONS: CHOLECYSTITIS COMPARISON: None. FINDINGS: Biliary ducts: 2 C-arm films from the OR are submitted. The surgeon injected contrast into the biliar y ducts after cannulation of the cystic duct. Visualized intra- and extrahepatic bile ducts are diamond l in caliber, without strictures. No intraluminal filling defects to suggest retained ductal stones or sludge. No evidence for iatrogenic ductal injury. Duodenum: Contrast flows promptly through the sphincter of Oddi into the duodenum, which appears nor mal in caliber. IMPRESSION: Instrumentation indicates laparoscopic cholecystectomy. No abnormality is seen in this intraoperative cholangiogram 2 image study. Dictated by: Justin Porras M.D. on 10/15/2016 at 21:01 Approved by: Justin Porras M.D. on 10/15/2016 at 21:02
[2016-10-15] MEDS ORDERED: Acetaminophen IV 1,000 MG in IV Premix 1 EACH IV PRN (21:20)
[2016-10-15 23:30] LABS: APPEARANCE,URINE CLEAR (CLEAR,HAZY); COLOR,URINE YELLOW (YELLOW); PH,URINE 5.5 (5.0-8.0)
--- NOTE | 2016-10-15 23:30 | NUR ---
Transfer Pt back from PACU. Not responding to commands. Opening eyes and pulling away when attempting to wake up. VSS. Pt turned to the left and blue brief placed for incontinence.
[2016-10-15 23:31] LABS: OCCULT BLOOD,URINE NEGATIVE (NEGATIVE); UROBILINOGEN,URINE NORMAL (NORMAL)
[2016-10-16] VITALS (7 sets, daily range): BP systolic 98–143; BP diastolic 54–86; PULSE 74–96; RESP 8–18; O2SAT 92–97
[2016-10-16] MEDS: Piperacillin-Tazo 3.375 Gm Inj 3.375 GM in Dextrose 5% Minibag Plus 50 ML IV SCH (00:10)
[2016-10-16] MEDS: Heparin 5,000 Unit/mL Inj SUBQ SCH ×3 (00:58→16:26)
[2016-10-16] MEDS: 0.9% Sodium Chloride 1,000 ML IV SCH (00:59)
[2016-10-16] MEDS ORDERED: Piperacillin-Tazo 3.375 Gm Inj 3.375 GM in Dextrose 5% Minibag Plus 50 ML IV SCH (01:30)
[2016-10-16 02:43] LABS: BASOPHILS % (AUTO) 0.1 % (0-3); EOSINOPHILS % (AUTO) 0 % (0-5); MONOCYTES % (AUTO) 2.5 % (4-12); Mean Corpuscular Hemoglobin 31.1 pg (27.0-35.0); Mean Corpuscular Volume 98.1 fL (81-100); NEUTROPHILS % (AUTO) 94.3 % (40-74); Platelet Count 169 bil/L (150-400)
[2016-10-16] MEDS: Diltiazem HCl 125 MG in 0.9% Sodium Chloride 100 ML, Pharmacy To Mix 1 EA IV SCH (10:47)
--- NOTE | 2016-10-16 11:34 | NUR ---
Mentation Pt only responsive to touch at beginning of shift. At approximately 1000 pt sitting up in bed following basic commands. States she has no pain. Responds with yes and no answers. Washcloth balled up and placed in left hand for comfort. Pt unable to open hand due to previous CVA. Pt repositioned off left side for Q 2 turns. Care continues.
--- NOTE | 2016-10-16 14:09 | PCM.PNMED ---
Subjective Date of Service Oct 16, 2016 Subjective Overnight the patient continued to be minimally responsive. Mrs. Kennedy continues to be minimally responsive. She rouses enough to say she feels bad but does not expand when prompted. Exam Vital Signs Vital Sign - Last Date Time Temp Pulse Resp B/P Pulse Ox O2 Delivery O2 Flow Rate FiO2 10/16/16 13:01 36.7 89 16 135/61 97 OxyMask 6.00 Intake and Output 10/15/16 10/15/16 10/16/16 Cumulative From/Thru 15:00 23:00 07:00 10/14/16 10:47 - 10/16/16 06:55 Intake Total 622 ml 1020 ml 502 ml 5031 ml Output Total 130 ml 50 ml 180 ml Balance 622 ml 890 ml 452 ml 4851 ml Intake Oral 0 ml 0 ml IV Total 622 ml 1020 ml 502 ml 5031 ml Output Urine Total 100 ml 50 ml 150 ml Estimated Blood Loss 30 ml 30 ml # Voids 3 Exam General: Patient very minimally responsive but does respond somewhat to questioning HEENT: NCAT. External ears without defect. She would not open her eyes nor mouth for examination. Neck: Supple. No jugular venous distension, thyromegaly. Cardiovascular: Irregular rhythm, but normal rate. No discernable murmur/rub/ gallop Pulmonary: CTA bilaterally with poor inspiratory effort. Abdomen: Soft, nondistended. No grimace when palpated. Healing laproscopic wounds without surrounding erythema or weepage. Extremities: No clubbing, cyanosis, edema, or lymphadenopathy appreciated. Skin: Normal temperature, turgor, and texture; no rash, ulcers, or subcutaneous nodules appreciated. Neurological: Unable to assess due to minimal responsiveness. Psychiatric: Patient minimally responsive. IVs and Medications Medications Reviewed: Medications were reviewed in detail Lab and Diagnostics Result Diagram: 10/16/16 0230 10/16/16 0230 X-Rays, CTs and MRIs US ABDOMEN IMPRESSION: Changes are present consistent with an acute cholecystitis. Left kidney and not sufficiently well seen to evaluate. Head and tail of the pancreas obscured by bowel gas. Approved by: Justin Porras M.D. on 10/14/2016 at 16:32 CT ABDOMEN AND PELVIS WITHOUT CONTRAST IMPRESSION: 1. Enlarged gallbladder with moderate surrounding edema is concerning for acute inflammation. An ultrasound would be helpful for better characterization , particularly given motion artifact through this region. These findings are suspicious for acute cholecystitis. 2. Minimal fluid within the left lower quadrant and pelvis probably is reactive to the probable inflammatory process within the right upper quadrant. However, superimposed subtle diverticulitis cannot be completely excluded. 3. Moderate residual stool within the colon. There is no bowel obstruction. 4. Probable chronic interstitial changes at the lung bases with bronchiectasis. 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 5. Nonobstructing left renal calculus. Soft tissue prominence of the left renal collecting system and upper ureter is similar to the previous exam and probably exaggerated by adjacent vascular structures. A ureteral lesion is felt to be unlikely. Approved by: Guicho Wallis M.D. on 10/14/2016 at 12:21 X-RAY CHEST ONE VIEW, PORTABLE IMPRESSION: Trace blunting of the left costophrenic angle suggestive of effusion. Smaller underlying airspace disease such as pneumonia and/or atelectasis cannot be excluded. Approved by: Siomara Castro M.D. on 10/14/2016 at 13:17 Cardiac Echo Impressions Echo 10/15/16 Interpretation Summary The left ventricular cavity is small. Proximal septal thickening is noted. Left ventricular systolic function is normal without focal wall motion abnormalities. The ejection fraction is estimated to be 65-70%. The right ventricle is normal in size and function. The left atrium is mildly dilated. The right atrium is normal in size. There is no significant valvular heart disease. The aortic root is normal size. The heart rate ranged between 93-125 bpm during the study in the setting of atrial fibrillation. Assessment & Plan Ms. Deidra Kennedy is an 85 year old female with a history of Afib on Coumadin and prior hemorrhagic CVA who presented to the Emergency Department with abdominal pain. She is currently being treated for KAREEM and acute cholecystitis with surgical evaluation. Septic Encephalopathy, not present on admission. Ongoing. - Patient normally alert, active, oriented at baseline per family - Patient has been minimally interactive during her admission - PO meds changed to IV counterparts - IVF changed to 1/2 NS at 80ml/hr Sepsis, present on admission. Resolved. - Likely secondary to Acute Cholecystitis - WBC fell to 16, no longer tachycardic, BP stable - Blood cultures negative x48h, urine unremarkable - IVF as above - Discontinue Zosyn IV Acute Cholecystitis, present on admission. Active. - Patient underwent cholecystectomy with Dr. Garcia - IVF as above. - Discontinued Zosyn - IV Morphine at 2 mg Q2H for pain relief Acute Kidney Injury, present on admission. Ongoing. 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 - Patient unable to take PO medications at this time - IV Keppra ordered Acute on Chronic Hypertension, present on admission. Active. - Consider restarting home meds when patient is able to take PO meds Chronic Atrial Fibrillation, present on admission. Active. - Continue Diltiazem drip until patient is able to take PO meds - Restart warfarin when patient is able to take PO meds Acute Super therapeutic INR, present on admission. Active. - INR 1.27 prior to surgery - Hold warfarin until cleared by surgery; consider subq heparin Hyperlipidemia, Chronic. - Continue home Pravastatin 80 mg Daily. GERD - Continue home Famotidine 10 mg Daily. Acetaminophen for mild pain when necessary. Bowel regimen Senna and MiraLAX scheduled when needed. Zofran when necessary for nausea and vomiting. SubQ heparin held for now. SCDs in place. High-risk medications: IV Morphine Patient Status: Patient will likely be admitted for the next 2-3 days depending on response to surgery, improving respiratory and mentation status. VTE Mechanical Devices: Intermittant Pneumatic CD Resuscitation Status: CPR: Attempt Resuscitation Attending Statement The patient was seen and examined together with Dr. Gutierrez on 10/16/2016 and I agree with the history, exam and plan as outlined in the note above. . Carlos Gutierrez DO Oct 16, 2016 14:08 Andrei Reeder MD Oct 17, 2016 08:03
--- NOTE | 2016-10-16 14:53 | NUR ---
Evaluation completed. Please go to "Notes" then click on "Assessments and Notes" (bottom left corner of screen). Then select appropriate discipline tab on top of screen.
--- NOTE | 2016-10-16 16:04 | NUR ---
Social Work: Multidisciplinary Rounds Pt discussed in am rounds; pt will be transferred to [facility]. ROTARY PLANER SET UP OPERATOR was not able to see the patient today due to high census. ROTARY PLANER SET UP OPERATOR will continue to follow and attempt to see the patient tomorrow to complete assessment. JOSE Mobley
--- NOTE | 2016-10-16 16:48 | NUR ---
Transferred Pt transferred to [facility] room 1014, report given to Adam STARR. Pt transported by bed, with 5 L oxymask. Pt left with all personal belongings. Egon notified. Care continues.
--- NOTE | 2016-10-16 17:16 | PCM.PNSURG ---
Subjective Date of Service: Oct 16, 2016 Visit Information: Reason for Visit Sepsis, Cholecystitis Surgery/Surgery Date Post-Op Day # Date of Admission: Oct 14, 2016 at 15:52 Hospital Day # Subjective: Patient minimally participatory in exam today Answers "yes" to ongoing belly pain Otherwise does not answer exam questions. Objective Vital Sign- Last 8 Hours Date Time Temp Pulse Resp B/P Pulse Ox O2 Delivery O2 Flow Rate FiO2 10/16/16 16:21 36.2 87 15 143/86 95 OxyMask 6.00 10/16/16 13:01 36.7 89 16 135/61 97 OxyMask 6.00 Intake and Output- Last 8 Hour 10/16/16 Cumulative From/Thru 07:00 10/14/16 10:47 - 10/16/16 06:55 Intake Total 502 ml 5031 ml Output Total 50 ml 180 ml Balance 452 ml 4851 ml Intake Oral 0 ml 0 ml IV Total 502 ml 5031 ml Output Urine Total 50 ml 150 ml Estimated Blood Loss 30 ml # Voids 3 General: No Acute Distress, Other (Minimally responsive but seems to be at neurologic baseline compared to yesterday's examination) Neck: Full Range of Motion Heart: Other (Irregularly irregular rate) Abdomen: Soft, Appropriately tender, Non-distended, Other (No guarding) Extremities: Warm Result Diagram: 10/16/16 0230 10/16/16 0230 Assessment & Plan Impression 85F with hx of CVA and afib who presented with cholecystitis now POD#1 s/p laparoscopic cholecystectomy. From a surgical standpoint she seems to be convalescing appropriately. Problems: Plan Ok to advance diet as tolerated. Dressings to remain at this time If possible, encourage IS and sitting in chair vs. ambulation Appreciate primary medicine team's ongoing care of afib, work up of mental status, etc Please do not hesitate to page or call with questions or concerns. I examined this patient and agree with the note above as written by Dr. Lopez. Uneventful laparoscopic cholecystectomy in the setting of severe acute cholecystitis and multiple associated medical comorbidities. Bell Garcia MD General Surgeon Resuscitation Status: CPR: Attempt Resuscitation Jose Lopez MD Oct 16, 2016 17:16 Bell Garcia MD Oct 16, 2016 18:13
--- NOTE | 2016-10-16 17:30 | NUR ---
RECEIVED FROM [facility] Received from [facility] via a hospital bed. IVF ongoing. Patient denies pain. Swallow eval done by Annia Walker RN. Patient is to be NPO per eval. On O2 a 5 -6 LPM via an oxymask. Denies SOB. Dressing in her abdomen is CDI. IFC intact and draining to robyn colored UO. Turned and repositioned. Jennifer alarm placed on for safety.
[2016-10-16] MEDS: levETIRAcetam 500 mg/100 mL NS IV SCH ×2 (19:46)
[2016-10-16] MEDS ORDERED: levETIRAcetam 500 mg Tablet PO SCH (20:30)
[2016-10-17] VITALS (10 sets, daily range): BP systolic 120–152; BP diastolic 64–84; PULSE 79–94; RESP 12–19; O2SAT 80–96
[2016-10-17] MEDS: Heparin 5,000 Unit/mL Inj SUBQ SCH ×3 (01:29→17:48)
--- NOTE | 2016-10-17 02:52 | NUR ---
Mentation Patient confused, difficulty expressing needs. c/o of abdominal pain, restless, and clearly agitated early into shift. given IV push pain medication and patient able to relax and get some sleep. HR stable monitored on TELE however, d/t NPO status this RN paged night hospitalist about evening Cardizem dose.Odered to report a maintain increase in HR. Care continues.
[2016-10-17 06:27] LABS: BASOPHILS % (AUTO) 0 % (0-3); EOSINOPHILS % (AUTO) 0 % (0-5); MONOCYTES % (AUTO) 5.3 % (4-12); Mean Corpuscular Hemoglobin 31.2 pg (27.0-35.0); Mean Corpuscular Volume 97.2 fL (81-100); NEUTROPHILS % (AUTO) 88.5 % (40-74); Platelet Count 179 bil/L (150-400)
--- NOTE | 2016-10-17 08:21 | PCM.PNSURG ---
Subjective Date of Service: Oct 17, 2016 Date of Service: Oct 17, 2016 Visit Information: Reason for Visit Sepsis, Cholecystitis Surgery/Surgery Date Post-Op Day # Date of Admission: Oct 14, 2016 at 15:52 Hospital Day # Subjective: The patient is answering questions more appropriately today however it appears she is answering some of the questions in another language. She denies nausea and abdominal pain but is unaware if she has had a bowel movement. She is currently nothing by mouth as there is some concern with her ability to swallow. Postop General: No Complaints Gastrointestinal: No N/V Pain Management: PO Objective Vital Sign- Last 8 Hours Date Time Temp Pulse Resp B/P Pulse Ox O2 Delivery O2 Flow Rate FiO2 10/17/16 05:21 91 10/17/16 05:00 36.7 92 16 147/77 96 OxyMask 5.00 10/17/16 01:00 36.4 86 16 120/84 92 Nasal Cannula 5.00 Intake and Output- Last 8 Hour 10/17/16 Cumulative From/Thru 07:00 10/14/16 10:47 - 10/17/16 06:27 Intake Total 628 ml 6417 ml Output Total 330 ml Balance 628 ml 6087 ml Intake Oral 0 ml IV Total 628 ml 6417 ml Output Urine Total 300 ml Estimated Blood Loss 30 ml # Voids 3 General: No Acute Distress Neck: Other (oriented to self but not location or time.) Lungs: Clear to Auscultation Heart: Exam Unremarkable Abdomen: Benign, Appropriately tender, Non-distended Result Diagram: 10/17/16 0611 10/17/16 0611 Assessment & Plan Problems: (1) Cholecystitis Status: Acute ICD Code: K81.9 Plan POD#2 s/p laparoscopic cholecystectomy. - From a surgical standpoint the patient is progressing appropriately - Awaiting swallow evaluation to advance diet - Please attempt to encourage patient to sit or ambulate and use an incentive spirometer - Appreciate hospitalists management of KAREEM, A. fib and mental status changes Resuscitation Status: CPR: Attempt Resuscitation Leandra Peacock DO Oct 17, 2016 08:21
[2016-10-17] MEDS: levETIRAcetam 500 mg/100 mL NS IV SCH ×4 (09:02→21:03)
--- NOTE | 2016-10-17 11:04 | NUR ---
NUTRITION ASSESSMENT: ASSESS: Pt is an 85yo F admitted for sepsis and cholecystitis. She is POD 2 lap cholecystectomy. Pt was evaluated by ST this am and made her NPO. Pt has been NPOx3 days. Pt has been experiencing AMS. Wt has been stable throughout hospital stay. PMHX: Afib, CVA, UTI, HTN LABS: Reviewed. 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 GI: 0 BMx3 days SKIN: no major issues CURRENT WTS: 64.8kg, BMI 20.5kg/m2, admit wt 64kg DIET: NPO per ST. NPO x3 days EST. NEEDS: Kcals: 1620-1945kcal/day (25-30kcal/kg) Pro: 65-80g/day (1.0-1.2g/kg) NUTRITION DIAGNOSIS: 1.) Inadequate oral intake related to decreased ability to consume sufficient energy as evidenced by current NPO status 2.) Chew/swallow difficulty related to AMS as evidence by need for NPO status per ST NUTRITION INTERVENTION: 1.) Recommend advance diet per ST 2.) Will monitor NPO status and POC. If pt is unable to have diet advanced, recommend nutrition support be considered if this fits within pt's goals of care. MONITOR / EVAL: NPO, ST, gi, wt, labs, POC, nutrition status. Will continue to monitor per high nutrition risk guidelines
--- NOTE | 2016-10-17 12:00 | PCM.ANEP1 ---
Post Anesthesia PACU Phase 1 Assessment Date of Service: Oct 16, 2016 Vital Signs Vital Signs Date Time Temp Pulse Resp B/P Pulse Ox O2 Delivery O2 Flow Rate FiO2 10/17/16 11:28 94 10/17/16 10:55 Mask 4.00 10/17/16 09:49 12 92 OxyMask 4.00 10/17/16 09:38 37.0 79 19 127/70 80 Room Air 10/17/16 08:46 92 Room Air 10/17/16 05:21 91 10/17/16 05:00 36.7 92 16 147/77 96 OxyMask 5.00 Anesthetic Administered: GA Level of Alertness: Sleeping, hard to arouse (baseline mentation to prior to surgery) Pain: No Pain Scale Score: 0 Nausea or Vomiting: No CV Function & Hydration Stable: Yes Airway Device: none Oxygen Delivery: Simple Mask Lungs: Clear to Auscultation PACU Phase 2 Assessment Complications: No Follow up Care: N/A Patient Instructions Provided: N/A Luciano Bellamy MD Oct 17, 2016 12:00
--- NOTE | 2016-10-17 13:47 | NUR ---
Evaluation completed. Please go to "Notes" then click on "Assessments and Notes" (bottom left corner of screen). Then select appropriate discipline tab on top of screen.
--- NOTE | 2016-10-17 14:01 | PCM.PNMED ---
Subjective Date of Service Oct 17, 2016 Subjective Patient had MANAGER ASSET evaluation today which she passed. Can now get by mouth medications. Zosyn was stopped. Exam Vital Signs Vital Sign - Last Date Time Temp Pulse Resp B/P Pulse Ox O2 Delivery O2 Flow Rate FiO2 10/17/16 12:24 37.0 91 15 152/73 96 OxyMask 4.00 Intake and Output 10/16/16 10/16/16 10/17/16 Cumulative From/Thru 15:00 23:00 07:00 10/14/16 10:47 - 10/17/16 06:27 Intake Total 758 ml 0 ml 628 ml 6417 ml Output Total 150 ml 330 ml Balance 758 ml -150 ml 628 ml 6087 ml Intake Oral 0 ml 0 ml IV Total 758 ml 628 ml 6417 ml Output Urine Total 150 ml 300 ml Estimated Blood Loss 30 ml # Voids 3 Exam General: Patient very minimally responsive but does respond somewhat to questioning HEENT: NCAT. External ears without defect. She would not open her eyes nor mouth for examination. Neck: Supple. No jugular venous distension, thyromegaly. Cardiovascular: Irregular rhythm, but normal rate. No discernable murmur/rub/ gallop Pulmonary: CTA bilaterally with poor inspiratory effort. Abdomen: Soft, nondistended. No grimace when palpated. Healing laproscopic wounds without surrounding erythema or weepage. Extremities: No clubbing, cyanosis, edema, or lymphadenopathy appreciated. Skin: Normal temperature, turgor, and texture; no rash, ulcers, or subcutaneous nodules appreciated. Neurological: Unable to assess due to minimal responsiveness. Psychiatric: Patient minimally responsive. IVs and Medications Medications Reviewed: Medications were reviewed in detail Lab and Diagnostics Result Diagram: 10/17/16 0611 10/17/16 0611 X-Rays, CTs and MRIs US ABDOMEN IMPRESSION: Changes are present consistent with an acute cholecystitis. Left kidney and not sufficiently well seen to evaluate. Head and tail of the pancreas obscured by bowel gas. Approved by: Justin Porras M.D. on 10/14/2016 at 16:32 CT ABDOMEN AND PELVIS WITHOUT CONTRAST IMPRESSION: 1. Enlarged gallbladder with moderate surrounding edema is concerning for acute inflammation. An ultrasound would be helpful for better characterization , particularly given motion artifact through this region. These findings are suspicious for acute cholecystitis. 2. Minimal fluid within the left lower quadrant and pelvis probably is reactive to the probable inflammatory process within the right upper quadrant. However, superimposed subtle diverticulitis cannot be completely excluded. 3. Moderate residual stool within the colon. There is no bowel obstruction. 4. Probable chronic interstitial changes at the lung bases with bronchiectasis. 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 5. Nonobstructing left renal calculus. Soft tissue prominence of the left renal collecting system and upper ureter is similar to the previous exam and probably exaggerated by adjacent vascular structures. A ureteral lesion is felt to be unlikely. Approved by: Guicho Wallis M.D. on 10/14/2016 at 12:21 X-RAY CHEST ONE VIEW, PORTABLE IMPRESSION: Trace blunting of the left costophrenic angle suggestive of effusion. Smaller underlying airspace disease such as pneumonia and/or atelectasis cannot be excluded. Approved by: Siomara Castro M.D. on 10/14/2016 at 13:17 Cardiac Echo Impressions Echo 10/15/16 Interpretation Summary The left ventricular cavity is small. Proximal septal thickening is noted. Left ventricular systolic function is normal without focal wall motion abnormalities. The ejection fraction is estimated to be 65-70%. The right ventricle is normal in size and function. The left atrium is mildly dilated. The right atrium is normal in size. There is no significant valvular heart disease. The aortic root is normal size. The heart rate ranged between 93-125 bpm during the study in the setting of atrial fibrillation. Assessment & Plan 85-year-old woman with dementia who presented with 3 days of abdominal pain associated with nausea and vomiting to the emergency department. A CT scan was obtained, as well as ultrasound, both revealing cholecystitis. She did not have an elevated bilirubin. POD#2 s/p laparoscopic cholecystectomy Acute Cholecystitis POD#2 s/p laparoscopic cholecystectomy, present on admission. Active. - Abdomen CT/US as above. - IVF and Antibiotics as above. - Echo as above - IV Morphine increased to 2 mg Q2H for pain relief - s/p cholescystectomy Acute Kidney Injury, present on admission. Active. The prerenal secondary to decreased by mouth intake, patient did pass swallow also will encourage by mouth intake will also continue IV fluids as tolerated given CHF. - Scr baseline 0.88. - Avoid nephrotoxic insults - recheck in AM. Chronic Atrial Fibrillation, present on admission. Active. - Her INR was greater than 4 due to long-term Coumadin use. Coumadin was discontinued and she received vitamin K. Her INR declined to 1.4 . Holding home warfarin. - Diltiazem drip d/c, started PO Diltiazem. - Call heart rate less than 115. Can give IV metoprolol as needed Encephalopathy, not present on admission. Ongoing. - Patient normally alert, active, oriented at baseline per family - Patient has been minimally interactive during her admission - PO meds changed to IV counterparts - 10/17- Can take PO meds per MANAGER ASSET, will transition to PO meds. Sepsis, present on admission. Improving. - Pulse 107, WBC 23, Creatinine 1.08 - Likely secondary to Acute Cholecystitis. - Blood cultures negative x24h, urine unremarkable - Lactic Acid continues to trend normally - Procalcitonin slightly elevated at 0.71 - Zosyn was stopped on 10/16. Monitor for fever. 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 - Residual seizure activity. - Patient unable to take PO medications at this time - IV Keppra ordered. Acute on Chronic Hypertension, present on admission. Active. - Consider restarting home meds after surgery if appropriate Hyperlipidemia, Chronic. - Continue home Pravastatin 80 mg Daily. GERD Continue home Famotidine 10 mg PO Daily. Acetaminophen for mild pain when necessary. Bowel regimen Senna and MiraLAX scheduled when needed. Zofran when necessary for nausea and vomiting. SubQ heparin held for now. SCDs in place. High-risk medications: IV Morphine Patient Status: Patient will likely be admitted for the next 2-3 days depending on response to surgery, improvement in symptoms, and overall medical stability. Pain Evaluation: Adequate Pain Control VTE Mechanical Devices: Intermittant Pneumatic CD Resuscitation Status: CPR: Attempt Resuscitation Jose A Arzola MD Oct 17, 2016 14:01
--- NOTE | 2016-10-17 16:29 | PATH ---
SURGICAL PATHOLOGY Attending Physician:Bell Garcia MD CASE STATUS: Signed Out PATIENT NAME: NGA MCKEE PID: [id number] : 1930 DATE COLLECTED:10/15/2016 00:00 SPECIMEN: Gallbladder CLINICAL HISTORY: CHOLECYSTITIS 1). GALLBLADDER FINAL DIAGNOSIS: 1.GALLBLADDER, CHOLECYSTECTOMY: CHRONIC ACTIVE CHOLECYSTITIS. CHOLELITHIASIS. NEGATIVE FOR DYSPLASIA OR MALIGNANCY. ICD10 K80.0 GROSS DESCRIPTION: Received in formalin, labeled with the patient' s name and "gallbladder", is one gallbladder measuring 7.0 x 4.0 x 2.5 cm. The serosal surface is mottled. [place] are located at the cystic duct region. Sectioning reveals the wall to measure up to 0.3 cm in thickness. Within the gallbladder is found a collection of firm, carrillo, clotted-blood type material and two yellow, multifaceted stones ranging in size from 0.3 x 0.3 x 0.3 cm to 1.0 x 0.8 x 0.8 cm. The stones are easily crushed to reveal a yellow crystalline array. The mucosal surface is pink-carrillo and shaggy. Medical Voucher Clerk sections are submitted in one cassette. [id number]) MICRO DESCRIPTION: See diagnosis. ICD-9 CODES: CPT CODES: 1: 37776 Electronically Signed Out Doni Ordonez MD, Ph.D. [facility] Pathology [facility] [address], [place] [address] Technical component performed at [facility], [facility] [address], [place], [address]
--- NOTE | 2016-10-17 19:05 | PCM.PHAPRO ---
Progress Date of Service: Oct 17, 2016 ABDOMINAL PAIN Warfarin Management per Pharmacy: Indication: Stroke prophylaxis as patient has atrial fibrillation ([id number]- Vasc = 6) Goal INR: 2-3 Home Dose: 5 mg Thu/Thu/Thu? - needs to be confirmed with as patient is confused. Suspect may be taking smaller dose on the other days. Labs: Hgb/Hct: 11.2/34.9 Plt: 127 INR: 1.27 Drug Interactions: None Additional Anticoagulants: Heparin subQ - d/c when INR above 2.0 Recommendation: Warfarin 5 mg PO x 1 today. INR: Ordered daily Pharmacy to continue to monitor and adjust dose daily Thank You, Aaliyah Shrestha, Pharm D. Aaliyah Shrestha Oct 17, 2016 19:05
--- NOTE | 2016-10-17 19:18 | NUR ---
O2 Pt on 5L O2 per shift report, Pt on RA r/t removing own O2 when entering the room this am, Pt did not appear to be in respiratory distress, SPO2 sats 92/93% when spot checked at this time, Pt left on RA. family practice physician assistant reported that Pt's SPO2 sat was 80% while doing am VS a short time later, Pt placed back on O2 and titrated to 4L to maintain SPO2 sats in the low 90s, updated.
[2016-10-18] VITALS (7 sets, daily range): BP systolic 129–145; BP diastolic 63–82; PULSE 62–98; RESP 15–19; O2SAT 92–95
[2016-10-18] MEDS: Heparin 5,000 Unit/mL Inj SUBQ SCH ×3 (00:14→17:42)
--- NOTE | 2016-10-18 05:43 | NUR ---
o2 / NOC Patient restless, Jennifer/bed alarm in place. Frequent repositioning, turned side to side, supported w/ pillows. Frequent rounds, safety checks. Patient removes NC, spo2 80% RA. Improves immediately when o2 reapplied. CXR completed this AM. Results pending at this time. CTM for changes.
[2016-10-18 06:44] LABS: BASOPHILS % (AUTO) 0.2 % (0-3); EOSINOPHILS % (AUTO) 0.8 % (0-5); MONOCYTES % (AUTO) 8.9 % (4-12); Mean Corpuscular Hemoglobin 31.3 pg (27.0-35.0); Mean Corpuscular Volume 93.4 fL (81-100); Platelet Count 129 bil/L (150-400)
[2016-10-18 07:14] LABS: INR 1.12 ratio
[2016-10-18] MEDS: levETIRAcetam 500 mg/100 mL NS IV SCH ×4 (10:27→21:46)
--- NOTE | 2016-10-18 12:16 | PCM.PHAPRO ---
Progress Warfarin Management per Pharmacy: Indication: Stroke prophylaxis as patient has atrial fibrillation ([id number]- Vasc = 6) Goal INR: 2-3 Home Dose: per external med history, 32 tablets of warfarin 5mg were filled for a 49 day supply (averages to ~ 3.25mg daily) Concurrent Anticoagulation: Heparin 5000 units subq q8 H/H 11.8/35.2 Platelets 129 Coagulation Trends: Oct 18-Sep 1.27 1.12 -0.15 5 MG 3.5mg Plan: will give warfarin 3.5mg this evening and monitor Emilie Alejandra [facility] Oct 18, 2016 12:16
--- NOTE | 2016-10-18 12:45 | DRSVH ---
PROCEDURE: X-RAY CHEST ONE VIEW, PORTABLE ([id number]) INDICATIONS: CHF, Pulmonary Edema TECHNIQUE: One view of the chest was acquired. COMPARISON: [facility], CR, XR CHEST 1VW (PORTABLE), 10/14/2016, 12:53. FINDINGS: Surgical changes and devices: None. Lungs and pleura: Bilateral perihilar infiltrates suspicious for pulmonary edema. There are moderate pleural effusions bilaterally with bibasilar consolidation or atelectasis. No pneumothorax. Mediastinum: Mediastinal contours appear normal. Heart size is normal. Bones and chest wall: No suspicious bony lesions. Overlying soft tissues appear unremarkable. Old right rib fractures are noted. IMPRESSION: 1. Bilateral perihilar infiltrates suspicious for pulmonary edema. 2. Moderate bilateral effusions with bibasilar consolidation or atelectasis. Dictated by: Briseyda Jones M.D. on 10/18/2016 at 12:41 Approved by: Briseyda Jones M.D. on 10/18/2016 at 12:42
--- NOTE | 2016-10-18 14:55 | PCM.PNSURG ---
Subjective Date of Service: Oct 18, 2016 Date of Service: Oct 18, 2016 Visit Information: Reason for Visit Sepsis, Cholecystitis Surgery/Surgery Date Post-Op Day # 3 s/p Lap Jacki Date of Admission: Oct 14, 2016 at 15:52 Hospital Day # Subjective: Patient seen and examined. Upon gentle reorientation says she feels better. Comments on being cold. Understands that of 62years marriage is at side. Recognizes neighbor. Refused PT today 2/2 being tired. Postop General: No Complaints, No Shortness of Breath, No Chest Pain Gastrointestinal: Tolerating Oral Feedings, No N/V, Other (No BM. ? flatus.) Pain Management: PO Neurological: Weakness Objective Vital Sign- Last 8 Hours Date Time Temp Pulse Resp B/P Pulse Ox O2 Delivery O2 Flow Rate FiO2 10/18/16 10:21 36.7 84 15 139/63 94 Nasal Cannula 3.00 10/18/16 08:20 Supplement Oxygen Intake and Output- Last 8 Hour 10/18/16 Cumulative From/Thru 07:00 10/14/16 10:47 - 10/18/16 05:54 Intake Total 1125 ml 8757 ml Output Total 550 ml 1355 ml Balance 575 ml 7402 ml Intake Oral 100 ml 300 ml IV Total 1025 ml 8457 ml Output Urine Total 550 ml 1325 ml Estimated Blood Loss 30 ml # Voids 3 Lungs: Clear to Auscultation Heart: Exam Unremarkable Abdomen: Soft, Appropriately tender, Normoactive bowel tones SURGICAL WOUND : Wound General Appearence: Steri Strips, No Erythema, No Discharge, No Inflammatory Changes Dressing & Drainage Status: Intact, Dressing Removed, Serosanguineous Drainage (dry) Result Diagram: 10/18/16 0610 10/17/16 0611 Diagnostics: Swallow Assessment * Pt admitted with KAREEM, cholecystitis and sepsis. S/p laparoscopic cholecystectomy. Hx sig for menorrhagic stroke. Per pt's , she was on a sof/tthin diet at baseline. Per surgery note, ok to advance diet as tolerated. The pt was plesantly confused. Her responses to questions were difficult to understand, and she appeared to speak some in another language (she is from [place]). Ome was grossly WNL. She tolerated all trials of puree and DM textures w/o overt s/s of aspiration, however she frequnently became distracted and would attempt to talk while chewing. She also tolerated trials of NTL. Pt demonstrated a mildly delayed swallow reflex with reduced laryngeal excursion. Pt takes meds in pudding at baseline. Rec puree/NTL, with one added side of DM texture to each tray, 1:1 feed, no straws. Must be bolt upright for meals. ST will follow daily. Assessment & Plan Impression slow postop course s/p lap jacki tolerating PO Weakness Problems: (1) Cholecystitis Status: Acute ICD Code: K81.9 Plan Diet per nutrition and speech Ambulate Reorient several times daily Discharge planning Surgery to follow Resuscitation Status: CPR: Attempt Resuscitation Jose Hubbard PA-C Oct 18, 2016 14:55
--- NOTE | 2016-10-18 15:18 | NUR ---
Activity Patient has been drowsy all shift. Refused PT once and stated she was too cold and tired. Patient falling asleep during visit with . Encouraging attempting to keep patient awake, oriented, and engaged to keep sleep/wake cycle regular. Q2 turns in place. Patient sitting upright for PO intake.
--- NOTE | 2016-10-18 16:26 | NUR ---
Social Work- Multidisciplinary Rounds Pt discussed in rounds. Pt will likely need SNF at discharge. SW unable to see pt today due to high census. SW will continue to follow. JOSE Butcher
--- NOTE | 2016-10-18 17:30 | PCM.PNMED ---
Subjective Date of Service Oct 18, 2016 Subjective No overnight events. Still lethargic. Exam Vital Signs Vital Sign - Last Date Time Temp Pulse Resp B/P Pulse Ox O2 Delivery O2 Flow Rate FiO2 10/18/16 15:14 Supplement Oxygen 10/18/16 10:21 36.7 84 15 139/63 94 3.00 Intake and Output 10/17/16 10/17/16 10/18/16 Cumulative From/Thru 15:00 23:00 07:00 10/14/16 10:47 - 10/18/16 05:54 Intake Total 0 ml 1215 ml 1125 ml 8757 ml Output Total 175 ml 300 ml 550 ml 1355 ml Balance -175 ml 915 ml 575 ml 7402 ml Intake Oral 0 ml 200 ml 100 ml 300 ml IV Total 1015 ml 1025 ml 8457 ml Output Urine Total 175 ml 300 ml 550 ml 1325 ml Estimated Blood Loss 30 ml # Voids 3 Exam General: NAD. HEENT: NCAT. External ears without defect. She would not open her eyes nor mouth for examination. Neck: Supple. No jugular venous distension, thyromegaly. Cardiovascular: Irregular rhythm, but normal rate. No discernable murmur/rub/ gallop Pulmonary: CTA bilaterally with poor inspiratory effort. Abdomen: Soft, nondistended. No grimace when palpated. Healing laproscopic wounds without surrounding erythema or weepage. Extremities: No clubbing, cyanosis, edema, or lymphadenopathy appreciated. Skin: Normal temperature, turgor, and texture; no rash, ulcers, or subcutaneous nodules appreciated. Neurological: Unable to assess due to minimal responsiveness. Psychiatric: Patient minimally responsive. IVs and Medications Medications Reviewed: Medications were reviewed in detail Lab and Diagnostics Result Diagram: 10/18/16 0610 10/17/16 0611 X-Rays, CTs and MRIs US ABDOMEN IMPRESSION: Changes are present consistent with an acute cholecystitis. Left kidney and not sufficiently well seen to evaluate. Head and tail of the pancreas obscured by bowel gas. Approved by: Justin Porras M.D. on 10/14/2016 at 16:32 CT ABDOMEN AND PELVIS WITHOUT CONTRAST IMPRESSION: 1. Enlarged gallbladder with moderate surrounding edema is concerning for acute inflammation. An ultrasound would be helpful for better characterization , particularly given motion artifact through this region. These findings are suspicious for acute cholecystitis. 2. Minimal fluid within the left lower quadrant and pelvis probably is reactive to the probable inflammatory process within the right upper quadrant. However, superimposed subtle diverticulitis cannot be completely excluded. 3. Moderate residual stool within the colon. There is no bowel obstruction. 4. Probable chronic interstitial changes at the lung bases with bronchiectasis. 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 5. Nonobstructing left renal calculus. Soft tissue prominence of the left renal collecting system and upper ureter is similar to the previous exam and probably exaggerated by adjacent vascular structures. A ureteral lesion is felt to be unlikely. Approved by: Guicho Wallis M.D. on 10/14/2016 at 12:21 X-RAY CHEST ONE VIEW, PORTABLE IMPRESSION: Trace blunting of the left costophrenic angle suggestive of effusion. Smaller underlying airspace disease such as pneumonia and/or atelectasis cannot be excluded. Approved by: Siomara Catsro M.D. on 10/14/2016 at 13:17 Cardiac Echo Impressions Echo 10/15/16 Interpretation Summary The left ventricular cavity is small. Proximal septal thickening is noted. Left ventricular systolic function is normal without focal wall motion abnormalities. The ejection fraction is estimated to be 65-70%. The right ventricle is normal in size and function. The left atrium is mildly dilated. The right atrium is normal in size. There is no significant valvular heart disease. The aortic root is normal size. The heart rate ranged between 93-125 bpm during the study in the setting of atrial fibrillation. Assessment & Plan 85-year-old woman with dementia who presented with 3 days of abdominal pain associated with nausea and vomiting to the emergency department. A CT scan was obtained, as well as ultrasound, both revealing cholecystitis. She did not have an elevated bilirubin. POD#2 s/p laparoscopic cholecystectomy Acute Cholecystitis POD#2 s/p laparoscopic cholecystectomy, present on admission. Active. - Abdomen CT/US as above. - IVF and Antibiotics as above. - Echo as above - IV Morphine increased to 2 mg Q2H for pain relief - s/p cholescystectomy Acute Kidney Injury, present on admission. Active. The prerenal secondary to decreased by mouth intake, patient did pass swallow also will encourage by mouth intake will also continue IV fluids as tolerated given CHF. - Scr baseline 0.88. - Avoid nephrotoxic insults - recheck in AM. Chronic Atrial Fibrillation, present on admission. Active. - Her INR was greater than 4 due to long-term Coumadin use. Coumadin was discontinued and she received vitamin K. Her INR declined to 1.4 . Holding home warfarin. - Diltiazem drip d/c, started PO Diltiazem. - Call heart rate less than 115. Can give IV metoprolol as needed Encephalopathy, not present on admission. Ongoing. - Patient normally alert, active, oriented at baseline per family - Patient has been minimally interactive during her admission - PO meds changed to IV counterparts - 10/17- Can take PO meds per DEBIT AGENT, will transition to PO meds. Sepsis, present on admission. Improving. - Pulse 107, WBC 23, Creatinine 1.08 - Likely secondary to Acute Cholecystitis. - Blood cultures negative x24h, urine unremarkable - Lactic Acid continues to trend normally - Procalcitonin slightly elevated at 0.71 - Zosyn was stopped on 10/16. Monitor for fever. 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 - Residual seizure activity. - Patient unable to take PO medications at this time - IV Keppra ordered. Acute on Chronic Hypertension, present on admission. Active. - Consider restarting home meds after surgery if appropriate Hyperlipidemia, Chronic. - Continue home Pravastatin 80 mg Daily. GERD Continue home Famotidine 10 mg PO Daily. Acetaminophen for mild pain when necessary. Bowel regimen Senna and MiraLAX scheduled when needed. Zofran when necessary for nausea and vomiting. SubQ heparin held for now. SCDs in place. High-risk medications: IV Morphine Patient Status: Patient will likely be admitted for the next 2-3 days depending on response to surgery, improvement in symptoms, and overall medical stability. VTE Mechanical Devices: Intermittant Pneumatic CD Resuscitation Status: CPR: Attempt Resuscitation Jose A Azrola MD Oct 18, 2016 17:30
[2016-10-19] VITALS (10 sets, daily range): BP systolic 134–138; BP diastolic 62–85; PULSE 63–89; RESP 16–21; O2SAT 84–99
[2016-10-19] MEDS: Heparin 5,000 Unit/mL Inj SUBQ SCH ×3 (00:30→16:40)
--- NOTE | 2016-10-19 06:06 | NUR ---
Pain states her stomach is "sore" attempting to get out of bed but moves very slowly. Repositioned Q 2hrs and tylenol given last evening. Denies further pain and has not needed Roxicodone overnight.
[2016-10-19 06:09] LABS: EOSINOPHILS % (AUTO) 2.8 % (0-5); MONOCYTES % (AUTO) 8.5 % (4-12); Mean Corpuscular Hemoglobin 31.3 pg (27.0-35.0); Mean Corpuscular Volume 91.7 fL (81-100); NEUTROPHILS % (AUTO) 65.2 % (40-74); Platelet Count 148 bil/L (150-400)
[2016-10-19 07:46] LABS: INR 1.35 ratio
[2016-10-19] MEDS: levETIRAcetam 500 mg/100 mL NS IV SCH ×2 (08:22)
--- NOTE | 2016-10-19 10:45 | NUR ---
Respiratory Patient has slight increased WOB this morning compared to yesterday. On 2L via nasal canula. Denies shortness of breath. Lung sounds are slightly decreased but clear. This RN called by MARLENY about patient's O2 sat being 77. Went in to assess patient-warmed up hands and got an O2 saturation of 84% on 2L via nasal canula. Increased O2 with no change in sat. Changed patient to simple mask due to patient being a mouth breather. Patient on 7L via simple mask with O2 sats 91%. MD aware. Order for lasix IVP, DC fluids, and chest xray. Addendum: 10/19/16 at 1125 by KULDEEP ORTEGA RN Able to titrate O2 down to 5L via nasal canula with sats at 90%. Patient unable to cough when prompted. Addendum: 10/19/16 at 1332 by KULDEEP ORTEGA RN Able to titrate patient's O2 down to 3L via nasal canula and patient is tolerating that well. Able to eat most of her lunch tray. at bedside and talked with him about the patient's oxygen requirements. Continuing to attempt O2 wean, spot checking O2 sats, and frequent rounding.
[2016-10-19] MEDS ORDERED: Furosemide 10 mg/mL 4 mL Inj IVPUSH ONE (10:55)
--- NOTE | 2016-10-19 11:18 | PCM.PHAPRO ---
Progress Date of Service: Oct 19, 2016 Warfarin dosing Date Oct 18-Oct 19-Sep INR 1.27 1.12 1.35 INR change -0.15 0.23 Warf Dose 5 MG 3.5MG 3.5MG Andrei Lang Oct 19, 2016 11:18
--- NOTE | 2016-10-19 11:22 | DRSVH ---
PROCEDURE: X-RAY CHEST ONE VIEW, PORTABLE ([id number]) INDICATIONS: SHORTNESS OF BREATH/DECREASE IN O2 SATS TECHNIQUE: One view of the chest was acquired. COMPARISON: None. FINDINGS: Surgical changes and devices: None. Lungs and pleura: No pleural effusions or pneumothorax. No change in bibasilar airspace opacity. Mod erate interstitial pulmonary opacity is present , as before. Mediastinum: Mediastinal contours appear normal. Heart size is enlarged. Bones and chest wall: No suspicious bony lesions. Overlying soft tissues appear unremarkable. IMPRESSION: 1. No change in moderate CHF. 2. No change in bibasilar pneumonia. Follow up plain films of the chest are recommended to ensure res olution, and to exclude underlying or central malignancy. Dictated by: Riccardo Monroe M.D. on 10/19/2016 at 11:20 Approved by: Riccardo Monroe M.D. on 10/19/2016 at 11:21
--- NOTE | 2016-10-19 12:30 | NUR ---
SANDOVAL signed by pt's , Kim Leach DIVISION SERVICE MANAGER
--- NOTE | 2016-10-19 12:50 | PROG NOTE ---
[address] [address] PROGRESS NOTE PATIENT: NGA MCKEE : 1930 MR#: [id number] ADMIT: 10/14/2016 JOB ID: [id number] DATE: 10/19/2016 SUBJECTIVE: Postop day [address] Garcia. OBJECTIVE: She remains afebrile, stable vital signs. Incisions are healing well. There is no drain. LABORATORY: Her white count is normal. Hematocrit is 36. There are no followup liver function tests since the . IMPRESSION AND PLAN: Doing well status post laparoscopic cholecystectomy. Overall general medical condition and disposition keeps her in the hospital but she is otherwise doing well.
--- NOTE | 2016-10-19 13:30 | NUR ---
SNF CHOICE LIST GIVEN. Kim Leach MSW
--- NOTE | 2016-10-19 13:33 | NUR ---
Bowels This AM patient stated she needed to have a bowel movement- attempted to get patient onto bedpan 2 times this AM with no luck of a BM. While on bedpan, patient continued to wiggle around stating she was not comfortable and couldn't go. After lunch, patient stated she needed to have a bowel movement but wanted the BSC. Via 2 person max assist with FWW and GB, patient was able to sit on BSC to pass gas and have a large, soft BM. Needed continuous direction during transfer. After transfer back to bed, patient is asleep.
--- NOTE | 2016-10-19 13:34 | NUR ---
Social Work- Initial Assessment/Multidisciplinary Rounds Data: See Initial Assessment and AD Intervention for additional information. Pt is a 85 year old female admitted for sepsis, cholecystitis per H&P. Pt is on day 5 of hospitalization. Pt's PCP is Bandar Anderson MD. Pt's insurance is [employer]. Pt's DPOA is Dilshad Kennedy [phone]. Per rounds, pt is going to work with PT today. Pt is POD 4. Pt will require SNF at discharge for RN and PT needs. SW met with pt and at bedside regarding discharge. Pt is alert but confused at baseline. Pt's capacity for self-care is assessed. Pt resides at home with her where she receives assistance with ADLs and self-care. Pt requires a walker at baseline. Pt has history with [facility] services for RN PT OT but is not open with them currently. Pt has history at [facility]. PT has worked with pt and recommending SNF. SW discussed this with pt's at bedside. is agreeable to SNF recommendation and order. SNF CHOICE LIST GIVEN. chose [facility] as first and only choice. T/C to Lazara at [facility] regarding referral. Facesheet faxed and access given. She is reviewing for admission. Paperwork in pt's chart. PASRR in folder. SW will continue to follow. Assessment: Pt for whom SNF is medically necessary Plan: Referral made to [facility] for RN and PT. Paperwork in pt's chart. PASRR in folder. SW will continue to follow. JOSE Butcher Addendum: 10/19/16 at 1343 by FAIZAN LEACH Amended: Links added. Addendum: 10/19/16 at 1345 by FAIZAN LEACH SS KASHIF provided discharge planning checklist to at bedside, instructed him to call if needs arise. Phone number and plan placed on whiteboard. KASHIF will continue to follow . Kim Leach, [employer]
--- NOTE | 2016-10-19 13:51 | PCM.PNMED ---
Subjective Date of Service Oct 19, 2016 Subjective Patient had episode hypoxia this morning. Has had continuous IV fluids running. Chest x-ray showed some pulmonary congestion. Patient also reportedly has a history of sleep apnea and desats when sleeping. Exam Vital Signs Vital Sign - Last Date Time Temp Pulse Resp B/P Pulse Ox O2 Delivery O2 Flow Rate FiO2 10/19/16 10:27 36.5 63 21 134/73 84 Nasal Cannula 2.00 Intake and Output 10/18/16 10/18/16 10/19/16 Cumulative From/Thru 15:00 23:00 07:00 10/14/16 10:47 - 10/19/16 06:24 Intake Total 1573 ml 1385 ml 79593 ml Output Total 1050 ml 950 ml 3355 ml Balance 523 ml 435 ml 8360 ml Intake Oral 500 ml 250 ml 1050 ml IV Total 1073 ml 1135 ml 36888 ml Output Urine Total 1050 ml 950 ml 3325 ml Estimated Blood Loss 30 ml # Voids 3 # Bowel Movements 1 0 1 Exam Gen: NAD, AOx4, Sitting up in bed eating lunch. HEENT: NCAT, PERRLA, EOMI, MMM, sclera anicteric. Neck: Soft, supple, no thyromegaly/JVD/LAD. Resp: Coarse BS. No wheezing. CV: Irreg, No M/R/G Abd: Soft, (+) BS, NT/ND, no guarding/rebound/organomegaly. Surgical SItes - c/d/i, no drainage. Ext: +PP, No edema. Skin: warm/dry/intact Neuro/Psych: Cooperative, appr mood/affect. CN II-XII grossly intact. No focal deficits. IVs and Medications Medications Reviewed: Medications were reviewed in detail Lab and Diagnostics Result Diagram: 10/19/16 0520 10/19/16 0912 X-Rays, CTs and MRIs US ABDOMEN IMPRESSION: Changes are present consistent with an acute cholecystitis. Left kidney and not sufficiently well seen to evaluate. Head and tail of the pancreas obscured by bowel gas. Approved by: Justin Porras M.D. on 10/14/2016 at 16:32 CT ABDOMEN AND PELVIS WITHOUT CONTRAST IMPRESSION: 1. Enlarged gallbladder with moderate surrounding edema is concerning for acute inflammation. An ultrasound would be helpful for better characterization , particularly given motion artifact through this region. These findings are suspicious for acute cholecystitis. 2. Minimal fluid within the left lower quadrant and pelvis probably is reactive to the probable inflammatory process within the right upper quadrant. However, superimposed subtle diverticulitis cannot be completely excluded. 3. Moderate residual stool within the colon. There is no bowel obstruction. 4. Probable chronic interstitial changes at the lung bases with bronchiectasis. 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 5. Nonobstructing left renal calculus. Soft tissue prominence of the left renal collecting system and upper ureter is similar to the previous exam and probably exaggerated by adjacent vascular structures. A ureteral lesion is felt to be unlikely. Approved by: Guicho Wallis M.D. on 10/14/2016 at 12:21 X-RAY CHEST ONE VIEW, PORTABLE IMPRESSION: Trace blunting of the left costophrenic angle suggestive of effusion. Smaller underlying airspace disease such as pneumonia and/or atelectasis cannot be excluded. Approved by: Siomara Castro M.D. on 10/14/2016 at 13:17 Cardiac Echo Impressions Echo 10/15/16 Interpretation Summary The left ventricular cavity is small. Proximal septal thickening is noted. Left ventricular systolic function is normal without focal wall motion abnormalities. The ejection fraction is estimated to be 65-70%. The right ventricle is normal in size and function. The left atrium is mildly dilated. The right atrium is normal in size. There is no significant valvular heart disease. The aortic root is normal size. The heart rate ranged between 93-125 bpm during the study in the setting of atrial fibrillation. Assessment & Plan 85-year-old woman with dementia who presented with 3 days of abdominal pain associated with nausea and vomiting to the emergency department. A CT scan was obtained, as well as ultrasound, both revealing cholecystitis. She did not have an elevated bilirubin. POD#2 s/p laparoscopic cholecystectomy Acute Cholecystitis POD#2 s/p laparoscopic cholecystectomy, present on admission. Active. - Abdomen CT/US as above. - IVF and Antibiotics as above. - IV Morphine increased to 2 mg Q2H for pain relief, change to po Oxycodone. - F/u surgery recs. Chronic Atrial Fibrillation, present on admission. Active. - Her INR was greater than 4 due to long-term Coumadin use. Coumadin was discontinued and she received vitamin K. Her INR declined to 1.4 - Diltiazem drip d/c, started PO Diltiazem. - Call heart rate less than 115. Can give IV metoprolol as needed - Restarted Coumadin. INR is 1.35 on 10/19. Goal 2-3. Acute Kidney Injury, present on admission. Resolved. The prerenal secondary to decreased by mouth intake, patient did pass swallow also will encourage by mouth intake will also continue IV fluids as tolerated given CHF. - Scr baseline 0.88. - Avoid nephrotoxic insults Encephalopathy, not present on admission. Improving. - Patient normally alert, active, oriented at baseline per family - Patient has been minimally interactive during her admission - PO meds changed to IV counterparts - 10/17- Can take PO meds per DISTILLERY MANAGER, transitioned to PO meds. Sepsis, present on admission. Resolved. - Pulse 107, WBC 23, Creatinine 1.08 - Likely secondary to Acute Cholecystitis. - Blood cultures negative x24h, urine unremarkable - Lactic Acid continues to trend normally - Procalcitonin slightly elevated at 0.71 - Zosyn was stopped on 10/16. Monitor for fever. 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 - Residual seizure activity. - Patient unable to take PO medications at this time - IV Keppra ordered. Hx of Seizure disoder- c/w Keppra change IV to PO. Acute on Chronic Hypertension, present on admission. Active. - Consider restarting home meds after surgery if appropriate Hyperlipidemia, Chronic. - Continue home Pravastatin 80 mg Daily. GERD Continue home Famotidine 10 mg PO Daily. Acetaminophen for mild pain when necessary. Bowel regimen Senna and MiraLAX scheduled when needed. Zofran when necessary for nausea and vomiting. Patient Status: Pt med stable and will go to SNF for PT. Pain Evaluation: Adequate Pain Control VTE Prophylaxis: Sub-Q Heparin (Unfractionated) VTE Mechanical Devices: Intermittant Pneumatic CD Resuscitation Status: CPR: Attempt Resuscitation Jose A Arzola MD Oct 19, 2016 13:51
[2016-10-19] MEDS: Sodium Chloride LOK Flush 10 mL Syringe IVFLUSH SCH (16:39)
[2016-10-19] MEDS: levETIRAcetam 500 mg Tablet PO SCH (20:38)
[2016-10-20] MEDS: Sodium Chloride LOK Flush 10 mL Syringe IVFLUSH SCH ×2 (00:42→10:31)
[2016-10-20] MEDS: Heparin 5,000 Unit/mL Inj SUBQ SCH ×2 (02:10→10:30)
--- NOTE | 2016-10-20 02:54 | NUR ---
PSYCH; pt restless and irritable off and on tonight.- Process Helper reported pt kicked at her once. Confused, wanting to get out of bed and go home. Didn't believe staff that it was the middle of the night. Took pills without problems. Tyenol 650mg po given for c/o general discomfort. Slept off and on. [place] alarm on.
[2016-10-20 05:29] LABS: INR 1.49 ratio
[2016-10-20 05:36] VITALS: BP 139/69; PULSE 84; RESP 16; O2SAT 96
--- NOTE | 2016-10-20 10:29 | PCM.PNSURG ---
Subjective Date of Service: Oct 20, 2016 Visit Information: Reason for Visit Sepsis, Cholecystitis Surgery/Surgery Date Post-Op Day # Date of Admission: Oct 14, 2016 at 15:52 Hospital Day # Subjective: No acute overnight events Patient reports she is having no abdominal pain She is tolerating pureed food without any nausea or vomiting Voiding, has not yet had a bowel movement No subjective fevers Wishes to get more sleep Objective Vital Sign- Last 8 Hours Date Time Temp Pulse Resp B/P Pulse Ox O2 Delivery O2 Flow Rate FiO2 10/20/16 05:36 37.1 84 16 139/69 96 Nasal Cannula 3.00 Intake and Output- Last 8 Hour 10/20/16 Cumulative From/Thru 07:00 10/14/16 10:47 - 10/20/16 05:36 Intake Total 250 ml 91651 ml Output Total 2000 ml 7655 ml Balance -1750 ml 5577 ml Intake Oral 250 ml 2000 ml IV Total 75006 ml Output Urine Total 2000 ml 7625 ml Estimated Blood Loss 30 ml # Voids 3 # Bowel Movements 0 1 General: Alert, Cooperative, No Acute Distress Neck: Supple Lungs: Normal Air Movement Abdomen: Benign, Soft, Non-tender, Other (Trocar sites dressed in steri-strips , c/d/i.) Extremities: Warm Result Diagram: 10/19/16 0520 10/19/16 0912 Assessment & Plan Impression 85F now POD#5 s/p uncomplicated laparoscopic cholecystectomy with normal intra- operative cholangiogram for acute cholecystitis. Problems: (1) Cholecystitis Status: Acute ICD Code: K81.9 Plan Patient appears to convalescing appropriately at this time. Ok to advance diet as deemed safe by primary team Daily bowel regimen with miralax and docusate No need for antibiosis as leukocytosis has resolved Ok to resume anticoagulation Will need follow up in surgery clinic in 1-2 weeks post-discharge Appreciate ongoing care by primary medical team Please do not hesitate to call with questions or concerns VTE Prophylaxis: Sub-Q Heparin (Unfractionated) Resuscitation Status: CPR: Attempt Resuscitation Jose Lopez MD Oct 20, 2016 10:29
[2016-10-20] MEDS: levETIRAcetam 500 mg Tablet PO SCH (10:32)
--- NOTE | 2016-10-20 11:15 | NUR ---
Fpc Transfer: Called and spoke with Demarcus at [facility] [phone] and let him know patient will be ready today. [facility] will transport and this is being arranged for 1300. Updated MD JOSE and RN Addendum: 10/20/16 at 1236 by PRABHA VALERO CM Faxed orders to [facility] and place copy in chart.
--- NOTE | 2016-10-20 11:19 | PCM.PNMED ---
Subjective Date of Service Oct 20, 2016 Subjective Patient was agitated overnight. Was able to be redirected. Does have episodes of desaturation which is likely related to her sleep apnea. Requiring oxygen overnight. Currently on room air. Exam Vital Signs Vital Sign - Last Date Time Temp Pulse Resp B/P Pulse Ox O2 Delivery O2 Flow Rate FiO2 10/20/16 10:43 Supplement Oxygen 10/20/16 05:36 37.1 84 16 139/69 96 3.00 Intake and Output 10/19/16 10/19/16 10/20/16 Cumulative From/Thru 15:00 23:00 07:00 10/14/16 10:47 - 10/20/16 05:36 Intake Total 567 ml 700 ml 250 ml 50157 ml Output Total 2300 ml 2000 ml 7655 ml Balance 567 ml -1600 ml -1750 ml 5577 ml Intake Oral 700 ml 250 ml 2000 ml IV Total 567 ml 52314 ml Output Urine Total 2300 ml 2000 ml 7625 ml Estimated Blood Loss 30 ml # Voids 3 # Bowel Movements 0 1 Exam Gen: NAD, AOx4, Sitting up in bed eating lunch. HEENT: NCAT, PERRLA, EOMI, MMM, sclera anicteric. Neck: Soft, supple, no thyromegaly/JVD/LAD. Resp: CTAB No wheezing. CV: Irreg, No M/R/G Abd: Soft, (+) BS, NT/ND, no guarding/rebound/organomegaly. Surgical SItes - c/d/i, no drainage. Ext: +PP, No edema. Skin: warm/dry/intact Neuro/Psych: Cooperative, appr mood/affect. CN II-XII grossly intact. No focal deficits. IVs and Medications Medications Reviewed: Medications were reviewed in detail Lab and Diagnostics Result Diagram: 10/19/16 0520 10/19/16 0912 X-Rays, CTs and MRIs US ABDOMEN IMPRESSION: Changes are present consistent with an acute cholecystitis. Left kidney and not sufficiently well seen to evaluate. Head and tail of the pancreas obscured by bowel gas. Approved by: Justin Porras M.D. on 10/14/2016 at 16:32 CT ABDOMEN AND PELVIS WITHOUT CONTRAST IMPRESSION: 1. Enlarged gallbladder with moderate surrounding edema is concerning for acute inflammation. An ultrasound would be helpful for better characterization , particularly given motion artifact through this region. These findings are suspicious for acute cholecystitis. 2. Minimal fluid within the left lower quadrant and pelvis probably is reactive to the probable inflammatory process within the right upper quadrant. However, superimposed subtle diverticulitis cannot be completely excluded. 3. Moderate residual stool within the colon. There is no bowel obstruction. 4. Probable chronic interstitial changes at the lung bases with bronchiectasis. 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 5. Nonobstructing left renal calculus. Soft tissue prominence of the left renal collecting system and upper ureter is similar to the previous exam and probably exaggerated by adjacent vascular structures. A ureteral lesion is felt to be unlikely. Approved by: Guicho Wallis M.D. on 10/14/2016 at 12:21 X-RAY CHEST ONE VIEW, PORTABLE IMPRESSION: Trace blunting of the left costophrenic angle suggestive of effusion. Smaller underlying airspace disease such as pneumonia and/or atelectasis cannot be excluded. Approved by: Siomara Castro M.D. on 10/14/2016 at 13:17 Cardiac Echo Impressions Echo 10/15/16 Interpretation Summary The left ventricular cavity is small. Proximal septal thickening is noted. Left ventricular systolic function is normal without focal wall motion abnormalities. The ejection fraction is estimated to be 65-70%. The right ventricle is normal in size and function. The left atrium is mildly dilated. The right atrium is normal in size. There is no significant valvular heart disease. The aortic root is normal size. The heart rate ranged between 93-125 bpm during the study in the setting of atrial fibrillation. Assessment & Plan 85-year-old woman with dementia who presented with 3 days of abdominal pain associated with nausea and vomiting to the emergency department. A CT scan was obtained, as well as ultrasound, both revealing cholecystitis. She did not have an elevated bilirubin. s/p laparoscopic cholecystectomy 10/15 POD#5 #Acute Cholecystitis s/p laparoscopic cholecystectomy, present on admission. Active. 10/15 POD#5 - Abdomen CT/US both revealing cholecystitis. - Completed abx course of Zosyn. - IV Morphine increased to 2 mg Q2H for pain relief, change to po Oxycodone. - Surgery cleared for discharge to SNF for PT. #Chronic Atrial Fibrillation, present on admission. Active. - Her INR was greater than 4 due to long-term Coumadin use. Coumadin was discontinued and she received vitamin K. Her INR declined to 1.4 - Diltiazem drip d/c, started PO Diltiazem. - Call heart rate less than 115. Can give IV metoprolol as needed - Restarted Coumadin. INR is 1.35 on 10/19. Goal 2-3. Not bridging. #ANAND- pt likely has undx ANAND as desat overnight. Have been maintaining sats with 3-4L NC. Is on Room air in daytime. Acute Kidney Injury, present on admission. Resolved. prerenal secondary to decreased by mouth intake. Pt can tolerate PO intake now . - Scr baseline 0.88. - Avoid nephrotoxic insults Encephalopathy, not present on admission. Improving. - Patient normally alert, active, oriented at baseline per family - Patient has been minimally interactive during her admission - PO meds changed to IV counterparts - 10/17- Can take PO meds per MAINTENANCE TECHNICIAN. Sepsis, present on admission. Resolved. - Pulse 107, WBC 23, Creatinine 1.08 - Likely secondary to Acute Cholecystitis. - Blood cultures negative x24h, urine unremarkable - Lactic Acid continues to trend normally - Procalcitonin slightly elevated at 0.71 - Zosyn was stopped on 10/16. Monitor for fever. 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 - Residual seizure activity. - Patient unable to take PO medications at this time - IV Keppra ordered. Hx of Seizure disoder- c/w Keppra changed IV to PO. Acute on Chronic Hypertension, present on admission. Active. - Consider restarting home meds after surgery if appropriate Hyperlipidemia, Chronic. - Continue home Pravastatin 80 mg Daily. GERD Continue home Famotidine 10 mg PO Daily. Acetaminophen for mild pain when necessary. Bowel regimen Senna and MiraLAX scheduled when needed. Zofran when necessary for nausea and vomiting. Patient Status: Pt med stable and will go to SNF for daily PT. - Restarted Coumadin. INR is 1.35 on 10/19. Goal 2-3. Not bridging. Check daily INR. - Likely has ANAND as desaturates overnight. Have been maintaining sats with 3-4L NC. Is on Room air in daytime. Pain Evaluation: Adequate Pain Control VTE Prophylaxis: Sub-Q Heparin (Unfractionated), Theraputic Anticoag with Warfarin VTE Mechanical Devices: Intermittant Pneumatic CD Resuscitation Status: CPR: Attempt Resuscitation Jose A Arzola MD Oct 20, 2016 11:19
--- NOTE | 2016-10-20 11:24 | PCM.DIMED ---
Discharge Instructions Date of Service Oct 20, 2016 Dates of Hospitalization Oct 14, 2016 at 15:52 Discharge Diagnosis Discharge Diagnosis #Acute Cholecystitis s/p laparoscopic cholecystectomy, present on admission. Active. 10/15 POD#5 #Chronic Atrial Fibrillation, present on admission. Active. #ANAND- poa, Active. #Acute Kidney Injury, present on admission. Resolved. Encephalopathy, not present on admission. Improving. 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 Acute on Chronic Hypertension, present on admission. Active. Hyperlipidemia, Chronic. GERD Medication Instructions Additional med instructions - Continue Coumadin and nightly oxgyen via nasal canula . Call your provider Call your provider for: Fever or Chills, Shortness of breath Patient Instructions Patient Instructions -Medically stable and will go to SNF for daily PT. - Restarted Coumadin. INR is 1.35 on 10/19. Goal 2-3. Not bridging. Check daily INR. - Likely has ANAND as desaturates overnight. Have been maintaining sats with 3-4L NC. Is on Room air in daytime. - [facility]. Provider: Bell Garcia MD Follow-up in: 2 weeks Jose A Arzola MD Oct 20, 2016 11:24
[2016-10-20] MEDS ORDERED: OXYC5TAB72 PO (11:26)
--- NOTE | 2016-10-20 11:26 | NUR ---
Social Work: Readiness for Discharge/Multi-Disciplinary Rounds D: EMR reviewed. Pt is on day 6 of hospitalization. Per rounds, pt is medically stable for discharge to [facility] today via wheelchair van. SW Curtain Framer scheduled transport for 1300 today. SW Curtain Framer updated MD and RN. RN agreeable to transport time. MD updated with request for discharge orders via [employer] page. T/C to pt's spouse confirming transport time to [facility] - SW left message requesting T/C - SW to update spouse on transport time. A: Pt for whom a SNF has been deemed medically necessary. P: Pt to transport to [facility] at 1300 today via wheelchair van - RN updated on discharge plan and transport time. SW will continue to follow. JOSE Mckeon
--- NOTE | 2016-10-20 11:27 | PCM.DC.MED ---
Discharge Summary Date of Service Oct 20, 2016 Dates of Hospitalization Date of Hospital Admission Oct 14, 2016 at 15:52 Date of Discharge: Oct 20, 2016 Providers: Admitting Physician: Andrei Reeder MD Primary Care Physician: Bandar Anderson MD Attending Physician: Gris Myers MD Diagnosis at Time of Discharge Diagnosis at Time of Discharge #Acute Cholecystitis s/p laparoscopic cholecystectomy, present on admission. Active. 10/15 POD#5 #Chronic Atrial Fibrillation, present on admission. Active. #ANAND- poa, Active. #Acute Kidney Injury, present on admission. Resolved. Encephalopathy, not present on admission. Improving. 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 Acute on Chronic Hypertension, present on admission. Active. Hyperlipidemia, Chronic. GERD Procedures XRay, CTs & MRIs US ABDOMEN IMPRESSION: Changes are present consistent with an acute cholecystitis. Left kidney and not sufficiently well seen to evaluate. Head and tail of the pancreas obscured by bowel gas. Approved by: Justin Porras M.D. on 10/14/2016 at 16:32 CT ABDOMEN AND PELVIS WITHOUT CONTRAST IMPRESSION: 1. Enlarged gallbladder with moderate surrounding edema is concerning for acute inflammation. An ultrasound would be helpful for better characterization , particularly given motion artifact through this region. These findings are suspicious for acute cholecystitis. 2. Minimal fluid within the left lower quadrant and pelvis probably is reactive to the probable inflammatory process within the right upper quadrant. However, superimposed subtle diverticulitis cannot be completely excluded. 3. Moderate residual stool within the colon. There is no bowel obstruction. 4. Probable chronic interstitial changes at the lung bases with bronchiectasis. 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 5. Nonobstructing left renal calculus. Soft tissue prominence of the left renal collecting system and upper ureter is similar to the previous exam and probably exaggerated by adjacent vascular structures. A ureteral lesion is felt to be unlikely. Approved by: Guicho Wallis M.D. on 10/14/2016 at 12:21 X-RAY CHEST ONE VIEW, PORTABLE IMPRESSION: Trace blunting of the left costophrenic angle suggestive of effusion. Smaller underlying airspace disease such as pneumonia and/or atelectasis cannot be excluded. Approved by: Siomara Castro M.D. on 10/14/2016 at 13:17 Cardiac Echo Impression Echo 10/15/16 Interpretation Summary The left ventricular cavity is small. Proximal septal thickening is noted. Left ventricular systolic function is normal without focal wall motion abnormalities. The ejection fraction is estimated to be 65-70%. The right ventricle is normal in size and function. The left atrium is mildly dilated. The right atrium is normal in size. There is no significant valvular heart disease. The aortic root is normal size. The heart rate ranged between 93-125 bpm during the study in the setting of atrial fibrillation. Brief History Per admitting physician History obtained from , Dilshad. Ms. 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 Regained most function but has some underlying vascular dementia but has a very functional baseline and now ambulates with a walker. She also has seizure activity following stroke, sees Dr. Apodaca and on [facility]. She is regularly active with her . She reports 3 episodes of nausea and vomiting Thursday. Over the weekend things seemed to resolve until late Thursday evening when she began reporting severe abdominal pain to her . They visited her primary care physician yesterday for imaging, chest and abdomen who contacted them today and advised to visit the ED. Upon arrival the patient was mostly non-responsive. She would moan briefly, stated her name, open eyes inconstantly to commands, and grimaces to pain. In the ED Patient had abdominal US and abdomen CT which showed likely Acute Cholecystitis, surgery consulted and advised Vit K, fluid resuscitation, antibiotics and will re-evaluate tomorrow. Dr. Garcia is on service with surgery. Patient lives with her Dilshad, in [place]. Upon interview in the ED: Patient was very minimally responsive and a review of systems was not possible. Vitals: 36.4, 116, 23, 160/64, 94 % on RA. WBC 28.2 Neuts 90 %. Sodium 147, Cre 1.44, glucose 167, Lactic Acid 1.8. INR 4.37. Blood cx x2 pending. UA with cx pending. Patient received Zosyn and NS bolus x2 L and Vit K in the ED. Hospital Course 85-year-old woman with dementia who presented with 3 days of abdominal pain associated with nausea and vomiting to the emergency department. A CT scan was obtained, as well as ultrasound, both revealing cholecystitis. She did not have an elevated bilirubin. s/p laparoscopic cholecystectomy 10/15 POD#5 #Acute Cholecystitis s/p laparoscopic cholecystectomy, present on admission. Active. 10/15 POD#5 - Abdomen CT/US both revealing cholecystitis. - Completed abx course of Zosyn. - IV Morphine increased to 2 mg Q2H for pain relief, change to po Oxycodone. - Surgery cleared for discharge to SNF for PT. #Chronic Atrial Fibrillation, present on admission. Active. - Her INR was greater than 4 due to long-term Coumadin use. Coumadin was discontinued and she received vitamin K. Her INR declined to 1.4 - Diltiazem drip d/c, started PO Diltiazem. - Call heart rate less than 115. Can give IV metoprolol as needed - Restarted Coumadin. INR is 1.35 on 10/19. Goal 2-3. Not bridging. #ANAND- pt likely has undx ANAND as desat overnight. Have been maintaining sats with 3-4L NC. Is on Room air in daytime. Acute Kidney Injury, present on admission. Resolved. prerenal secondary to decreased by mouth intake. Pt can tolerate PO intake now . - Scr baseline 0.88. - Avoid nephrotoxic insults Encephalopathy, not present on admission. Improving. - Patient normally alert, active, oriented at baseline per family - Patient has been minimally interactive during her admission - PO meds changed to IV counterparts - 10/17- Can take PO meds per SLUNK SKINNER. Sepsis, present on admission. Resolved. - Pulse 107, WBC 23, Creatinine 1.08 - Likely secondary to Acute Cholecystitis. - Blood cultures negative x24h, urine unremarkable - Lactic Acid continues to trend normally - Procalcitonin slightly elevated at 0.71 - Zosyn was stopped on 10/16. Monitor for fever. 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 - Residual seizure activity. - Patient unable to take PO medications at this time - IV Keppra ordered. Hx of Seizure disoder- c/w Keppra changed IV to PO. Acute on Chronic Hypertension, present on admission. Active. - Consider restarting home meds after surgery if appropriate Hyperlipidemia, Chronic. - Continue home Pravastatin 80 mg Daily. GERD Continue home Famotidine 10 mg PO Daily. Acetaminophen for mild pain when necessary. Bowel regimen Senna and MiraLAX scheduled when needed. Zofran when necessary for nausea and vomiting. Patient Status: Pt med stable and will go to SNF for daily PT. - Restarted Coumadin. INR is 1.35 on 10/19. Goal 2-3. Not bridging. Check daily INR. - Likely has ANAND as desaturates overnight. Have been maintaining sats with 3-4L NC. Is on Room air in daytime. Exam Vital Signs (Last) Date Time Temp Pulse Resp B/P Pulse Ox O2 Delivery O2 Flow Rate FiO2 10/20/16 10:43 Supplement Oxygen 10/20/16 05:36 37.1 84 16 139/69 96 3.00 Test 10/14/16 11:50 10/15/16 04:20 10/15/16 10:15 10/15/16 22:00 Magnesium Level 2.3mg/dL (1.6-2.6) Lipase 20U/L (13-60) Lactic Acid Level 0.8mmol/L (0.4-2.0) C-Reactive Protein 28.8mg/dL (0.0-0.5) Procalcitonin 0.71ng/mL (0.00-0.08) Hold Cervantes Top Tube Received (Received) Urine Color Yellow (YELLOW) Urine Appearance Clear (CLEAR,HAZY) Urine pH 5.5 (5.0-8.0) Urine Specific [place] >1.030 (1.003-1.035) Urine Protein 30mg/dL (NEG,TRACE) Urine Glucose (UA) Negativemg/dL (NEGATIVE) Urine Ketones Negativemg/dL (NEGATIVE) Urine Occult Blood Negative (NEGATIVE) Urine Nitrite Negative (NEGATIVE) Urine Bilirubin Negative (NEGATIVE) Urine Urobilinogen Normalmg/dL (NORMAL) Urine Leukocyte Esterase Negative (NEGATIVE) Urine RBC 0-2/hpf (0-2) Urine WBC 0-5/hpf (0-5) Urine Epithelial Cells Few/hpf (NONE-MOD) Urine Crystals None seen (NONE SEEN) Urine Bacteria Few/hpf (NONE-FEW) Urine Hyaline Casts None/lpf (NONE) Urine Granular Casts Occasional (NONE SEEN) Urine Waxy Casts None seen (NONE SEEN) Urine Red Blood Cell Casts None seen (NONE SEEN) Urine White Blood Cell Casts None seen (NONE SEEN) Urine Mucus None seen (None Seen) Urine Trichomonas None seen (NONE SEEN) Urine Yeast None (NONE SEEN) Urinalysis Comment None Urine Culture Reflexed Not indicated Test 10/17/16 06:11 10/19/16 05:20 10/19/16 09:12 10/20/16 04:58 Total Bilirubin 0.4mg/dL (0.0-1.2) Aspartate Amino Transf (AST/SGOT) 36U/L (0-50) Alanine Aminotransferase (ALT/SGPT) 29U/L (0-32) Alkaline Phosphatase 124U/L (25-165) Total Protein 5.0g/dL (6.4-8.4) Albumin 2.5g/dL (3.4-5.0) White Blood Count 10.0th/mm3 (3.8-10.1) Red Blood Count 3.96mil/mm3 (3.90-5.20) Hemoglobin 12.4g/dL (12.0-15.6) Hematocrit 36.3% (35.0-46.0) Mean Corpuscular Volume 91.7fL (81-100) Mean Corpuscular Hemoglobin 31.3pg (27.0-35.0) Mean Corpuscular Hemoglobin Concent 34.2% (32.0-37.0) Red Cell Distribution Width 12.8% (12.3-15.4) Platelet Count 148bil/L (150-400) Neutrophils (%) (Auto) 65.2% (40-74) Lymphocytes (%) (Auto) 16.5% (14-46) Monocytes (%) (Auto) 8.5% (4-12) Eosinophils (%) (Auto) 2.8% (0-5) Basophils (%) (Auto) 1.0% (0-3) Sodium Level 140mEq/L (134-144) Potassium Level 3.7mEq/L (3.5-5.2) Chloride Level 104mEq/L (97-108) Carbon Dioxide Level 19mmol/L (18-29) Blood Urea Nitrogen 24mg/dL (8-27) Creatinine 0.78mg/dL (0.57-1.00) Estimat Glomerular Filtration Rate 100mL/min (>59) Glucose Level 88mg/dL (60-99) Calcium Level 7.8mg/dL (8.5-10.1) Prothrombin Time 16.1sec (8.1-12.5) Prothromb Time International Ratio 1.49ratio Discharge Medications Discharge Medications Diltiazem (Diltiazem) 60 Mg Tablet 60 MG PO Q8H (Reported) Levetiracetam (Levetiracetam) 500 Mg Tablet 500 MG PO BID (Reported) Memantine HCl (Memantine HCl) 10 Mg Tablet 10 MG PO BID (Reported) Warfarin Sodium (Coumadin) 5 Mg Tablet 5 MG PO Mon, Wed, Fri (Reported) As needed oxyCODONE (oxyCODONE) 5 Mg Tablet 5 MG PO Q6 PRN PRN For Moderate Pain Prescribed by: GRIS MYERS MD Additional med instructions - Continue Coumadin and nightly oxgyen via nasal canula . Followup Plan Disposition: Discharge to SNF- [facility]. Patient Instructions -Medically stable and will go to SNF for daily PT. - Restarted Coumadin. INR is 1.35 on 10/19. Goal 2-3. Not bridging. Check daily INR. - Likely has ANAND as desaturates overnight. Have been maintaining sats with 3-4L NC. Is on Room air in daytime. - [facility] 2 [facility]. Provider: Bell Garcia MD Follow-up in: 2 weeks Gris Myers MD Oct 20, 2016 11:27
--- NOTE | 2016-10-20 12:34 | PCM.PHAPRO ---
Progress Date of Service: Oct 20, 2016 Warfarin dosing Date Oct 18-Oct 19-Oct 20-Sep INR 1.27 1.12 1.35 1.49 INR change -0.15 0.23 0.14 Warf Dose 5 MG 3.5MG 3.5MG 3.5MG Zabrina Deleon PharmD Oct 20, 2016 12:34
--- NOTE | 2016-10-20 13:20 | NUR ---
Discharge Patient discharged to [facility]. Reported call to Annia at [facility]. Per COMPUTER PUBLISHER, patient had no belongings. Steri-strips intake. Jimenes in place. Student nurse DC'd IV. IV intact. Patient 2 person max assist to W/C. [facility] escorted patient out via W/C.
== END 2016-10-20 13:13 | DRG 853 ==
LOC: SED 10:39 → PCC 15:52 → OSC 10-16 13:48
PROVIDERS: ADMIT Internal Medicine; ATTEND Internal Medicine
PROC: BF131ZZ Fluoroscopy of Gallbladder and Bile Ducts using Low Osmolar Contrast (ICD-10-PCS; 2016-10-15)
PROC: 0FT44ZZ Resection of Gallbladder, Percutaneous Endoscopic Approach (ICD-10-PCS; principal; 2016-10-15 16:00)
DX: A41.9 Sepsis, unspecified organism (principal); G93.49 Other encephalopathy; K81.0 Acute cholecystitis; N17.9 Acute kidney failure, unspecified; I69.254 Hemiplegia and hemiparesis following other nontraumatic intracranial hemorrhage affecting left non-dominant side; Z79.01 Long term (current) use of anticoagulants; I10 Essential (primary) hypertension; F01.50 Vascular dementia, unspecified severity, without behavioral disturbance, psychotic disturbance, mood disturbance, and anxiety; I48.2 Chronic atrial fibrillation; E78.5 Hyperlipidemia, unspecified; I69.111 Memory deficit following nontraumatic intracerebral hemorrhage; T45.515A Adverse effect of anticoagulants, initial encounter; G40.909 Epilepsy, unspecified, not intractable, without status epilepticus; K21.9 Gastro-esophageal reflux disease without esophagitis; G47.33 Obstructive sleep apnea (adult) (pediatric)